=== PATIENT | male | born 1960 | race American Indian/Alaskan Native ===

== ENCOUNTER → 2019-04-12 08:00 | Outpatient (CLI) | payer MEDICARE, SELFPAY ==
--- NOTE | 2019-04-12 08:07 | RAD_ITS ---
CLINICAL HISTORY: Male, 58 years old. PROCEDURE: CONSENT: SEDATION: FLUOROSCOPY TIME (if supplied): (2:43) minutes/seconds Findings: patient swallowed barium without difficulty. There is no evidence of obstruction, hiatal hernia or gastroesophageal reflux. The stomach was then filled to the normal contour without mucosal abnormalities. The duodenal bulb and sweep are unremarkable. The proximal small bowel is within normal limits. RAD/Upper GI Series Only IMPRESSION: Negative study Electronically Signed: Florecita Avalos, at 8:30 EDT Tel , Service support ,
== END ==
PROVIDERS: Family Provider Family Medicine; PCP Family Medicine; Referring Provider Family Medicine; Visit Provider Family Medicine
DX: R07.89 Other chest pain (principal); R06.02 Shortness of breath; I25.10 Atherosclerotic heart disease of native coronary artery without angina pectoris; I25.83 Coronary atherosclerosis due to lipid rich plaque; I50.32 Chronic diastolic (congestive) heart failure
CPT/HCPCS: 74246; 93225; 93226

== ENCOUNTER → 2019-04-27 12:55 | Outpatient (CLI) | payer MEDICARE, SELFPAY ==
--- NOTE | 2019-04-27 12:58 | ECHOD_ITS ---
Reason For Study: Atypical chest pain Procedure This was a 2D Doppler, Color Flow transthoracic echocardiogram. The study was technically difficult. Contrast injection was performed. Exam performed in department. Left Ventricle Normal LV size. Moderate segmental systolic dysfunction (see wall motion). The estimated ejection fraction is 30 %. Transmitral doppler flow suggestive of impaired relaxation of left ventricle. Infero-Basal: Hypokinetic. Basal inferoseptal: Akinetic. Mid-Anterior : Severely Hypokinetic. Mid- Lateral : Hypokinetic. Mid-Inferior: Akinetic. Mid-inferoseptal : Akinetic. Mid-anteroseptal : Akinetic. Anterior [place] : Hypokinetic. Inferior [place] : Dyskinetic. Lateral [place] : Akinetic. Septal [place] : Hypokinetic. Right Ventricle Normal RV size. Normal systolic function. Atria The left atrium is mildly enlarged. Normal right atrium. No doppler evidence for ASD. Mitral Valve There is no mitral annular calcification. Normal mitral valve. Trivial mitral valve insufficiency. Tricuspid Valve Normal tricuspid valve. Trivial tricuspid valve insufficiency. Right ventricular systolic pressure estimated to be 35 mmHg. Aortic Valve Trisinus/trileaflet aortic valve. Normal aortic valve. Pulmonic Valve The pulmonic valve is not well visualized. Great Vessels Normal sized aortic root. Pericardium/Pleural No pericardial effusion. Medication 22 gauge I.V. with prn adaptor inserted into right arm. Diluted definity 4ml given slow IV push to enhance endocardial definition. MMode/2D Measurements & Calculations LVIDd: 5.5 cm IVSd: 1.1 cm Ao root diam: 3.8 cm LVIDs: 4.3 cm LVPWd: 1.0 cm RVDd: 3.8 cm FS: 22.7 % LAV(MOD-bp): 100.5 ml LA A4 area: 27.4 cm2 LA dimension(2D): 3.9 cm LAV(MOD-bp) Indexed: 39.0 ml/m2 LAV(MOD-sp2): 106.2 ml LAV(MOD-sp4): 82.4 ml RA A4 area: 22.4 cm2 Doppler Measurements & Calculations MV E max solitario: 63.5 cm/sec Lat Peak E' Solitario: 8.9 cm/sec Med Peak E' Solitario: 5.9 cm/sec MV A max solitario: 102.6 cm/sec E/E' lat: 7.2 E/E' med: 10.7 MV E/A: 0.62 Ao V2 max: 146.3 cm/sec LV V1 max: 93.6 cm/sec PA V2 max: 108.6 cm/sec Ao max P.6 mmHg LV V1 max P.5 mmHg TR max solitario: 281.0 cm/sec TR max P.6 mmHg Interpretation Summary The study was technically difficult. Contrast injection was performed. Moderate segmental systolic dysfunction (see wall motion). The estimated ejection fraction is 30 %. The left atrium is mildly enlarged. Trivial mitral valve insufficiency. Trivial tricuspid valve insufficiency. Right ventricular systolic pressure estimated to be 35 mmHg. Transmitral doppler flow suggestive of impaired relaxation of left ventricle Ordering Physician: Jae Berumen Referring Physician: Jae Berumen Performed By: Ana Iqbal RDCS
== END ==
PROVIDERS: Family Provider Family Medicine; PCP Family Medicine; Referring Provider Family Medicine; Visit Provider Family Medicine
DX: I25.83 Coronary atherosclerosis due to lipid rich plaque (principal); I50.32 Chronic diastolic (congestive) heart failure; R07.89 Other chest pain; R06.02 Shortness of breath
CPT/HCPCS: 93306; Q9957; A4216; C8929

== ENCOUNTER 2020-02-24 07:40 | Day surgery (SDC) | payer MEDICARE, SELFPAY ==
[2019-11-18 11:00] VITALS: BMI 48.8
--- NOTE | 2019-12-20 11:11 | HP_ITS ---
HPI HPI History of Present Illness Surgical H&P: Yes Details: This is a 59-year-old gentleman that is here for an updated H&P for an upcoming prophylactic ICD placement later on this month with Dr. Herrera. He has a history of coronary artery disease with stenting to his LAD and circumflex in 2010, cardiomyopathy with an ejection fraction of 30%, frequent PVCs. He does not have any chest pain. He does get SOB with exertion. He feels that he is SOB walking up a flight of steps. This is not new. He does not feel that this is worse than before. He does not have any orthopnea. He does use O2 at night. He does not note any palpitations. He does not have any near syncope/syncope. He does have positional dizziness. He does have edema. Intake Vital Signs 12/20/19 Height 6 ft 12/20/19 Weight: 358 lb 12/20/19 BMI 48.5 12/20/19 BP 130/58 H 12/20/19 Blood Pressure Location Lt brachial 12/20/19 Position Sitting 12/20/19 Respiration 18 12/20/19 Pulse 88 12/20/19 Pulse Source Monitor 12/20/19 Pulse Oximetry (%) 98 Intake Visit Reasons: UPDATE H&P FOR MAYI CHEN 11:00 Communications Maintainer Required: No Accompanied by: None Is patient in pain?: No Allergies atorvastatin [From Lipitor] Adverse Reaction (Intermediate, Verified 12/20/19 10:24) Myalgias pravastatin [From Pravachol] Adverse Reaction (Intermediate, Verified 12/20/19 10:24) Myalgias Medications Aspirin 325 mg PO DAILY@0800 05/23/16 [History Confirmed 12/20/19] Carvedilol [Coreg] 12.5 mg PO BID 05/23/16 [History Confirmed 12/20/19] Clopidogrel Bisulfate [Plavix] 75 mg PO DAILY 05/23/16 [History Confirmed 12/20/19] albuterol sulfate 2.5 mg/0.5 mL solution for nebulization 2.5 mg INHALATION Q6H PRN 05/14/19 [History Confirmed 12/20/19] albuterol sulfate 90 mcg/actuation breath activated powder inhaler 1 inh INHALATION Q4H PRN 05/14/19 [History Confirmed 12/20/19] amlodipine 5 mg tablet 5 mg PO DAILY 05/14/19 [History Confirmed 12/20/19] gabapentin 300 mg capsule 300 mg PO BID cap 05/14/19 [History Confirmed 12/20/19] losartan 100 mg tablet 100 mg PO DAILY 05/14/19 [History Confirmed 12/20/19] lovastatin 40 mg tablet 40 mg PO QPM 05/14/19 [History Confirmed 12/20/19] metformin 500 mg tablet 500 mg PO BID 05/14/19 [History Confirmed 12/20/19] nitroglycerin 0.4 mg sublingual tablet 0.4 mg SUBLINGUAL Q5-15M 05/14/19 [History Confirmed 12/20/19] tramadol 50 mg tablet 50 mg PO Q12H 05/14/19 [History Confirmed 12/20/19] trazodone 50 mg tablet 50 mg PO QHS 05/14/19 [History Confirmed 12/20/19] [facility] Medical History Ischemic cardiomyopathy with implantable cardioverter-defibrillator (ICD) (Chronic) Nocturnal oxygen desaturation (Chronic) Atherosclerotic heart disease of [place] coronary artery without angina pectoris (Chronic) Diminished pulses in lower extremity (Chronic) Neuropathy of both feet (Chronic) History of tobacco use (Chronic) KRISHAN (obstructive sleep apnea) (Chronic) COPD (chronic obstructive pulmonary disease) (Chronic) Aortic ectasia, abdominal (Chronic) CHF (congestive heart failure), NYHA class III (Chronic) Hyperlipidemia (Chronic) Essential hypertension (Chronic) Diabetes mellitus, type II (Chronic) Atrial tachycardia, paroxysmal (Acute) PAC (premature atrial contraction) (Acute) PVC's (premature ventricular contractions) (Acute) Cardiomyopathy (Acute) Edema of right lower extremity (Acute) Obesity (BMI 35.0-39.9 without comorbidity) (Chronic) Open wound of right lower extremity with complication (Resolved) Surgical History Stented coronary artery (Chronic 12/12/10) History of left heart catheterization (Chronic 03/25/19) Family History Father , Age 41 of CHF Cardiomyopathy Congestive heart failure Sister , age 38 of heart failure Congestive heart failure Social History (Updated 12/20/19 @ 11:11 by CATALINA Rosenthal) Smoking Status: Former smoker ROS Const Const: Negative for fatigue, weakness, fever(s) or headache(s) Eyes Eyes: Negative for blind spots, loss of peripheral vision or transient loss of vision ENT ENT: Positive for dizziness; negative for headache(s), tinnitus or Nosebleed/epistaxis Cardio Chest Pain: No Palpitations: No Edema: None Muscle aches with walking: None Resp Respiratory: Positive for SOB with activity; negative for SOB at rest, SOB orthopnea\SOB lying down or Cough Additional Details: wears O2 at night GI GI: Negative nausea, vomiting, heartburn or vomiting blood/hematemesis : Negative for hematuria Musc Musc: Positive for muscle aches/ myalgia, muscle weakness and joint pain Neuro Neuro: Positive for dizziness; negative for lightheadedness, near syncope, syncope, orthostatic symptoms, headache(s) or weakness Basilio Hematologic/Lymphatic: Negative for easy bleeding Endo Endo: Negative for fatigue Cardiology Exam Const Appearance: cooperative, no acute distress and well developed Nutritional Appearance: obese Orientation: alert, awake and oriented x3 Head Head: normocephalic and atraumatic Mouth: moist mucous membranes Eyes General: appearance normal, both eyes and all related structures Conjunctivae: conjunctivae normal Pupils: PERRL EOM: EOM intact bilaterally Neck Neck: normal visual inspection, no lymphadenopathy and no JVD Carotids: Negative bruit Neck Mass: Negative Neck mass Chest Chest inspection: normal inspection of the chest and symmetric chest movement Auscultation: Bilateral: Clear to Auscultation Cardio Palpation: normal PMI Rate: regular rate Rhythm: regular rhythm Heart sounds: S1 normal and S2 normal; negative rub, gallop or murmur GI GI: normal to inspection, soft, no hepatosplenomegaly, bowel sounds present and obese; negative tender Neuro General: alert, awake, oriented x3, CN's II-XI intact bilaterally and moves all extremities Extremities Pulses: Normal: Right Posterior Tibial Pulse, Left Posterior Tibial Pulse, Right Radial Pulse, Left Radial Pulse Lower Extremity Edema: None: Bilateral Psych Psychological: normal affect Assessment & Plan 1. Atherosclerosis of [place] coronary artery of [place] heart without angina pectoris I25.10 Totally occluded LAD, 95-99 mid RCA occlusion, 70-80% lcx stenosis per [facility] 11/25/[address] Luis Carlos Bernabe, [facility].3.0 X 23 Promus stent to left CX per Dr. Bernabe @ [facility] 12/12/2010. Nonobstructive CAD, previously placed stents in LAD are patent per Dr. Maverick Chu [facility] main [place] 03/25/2019 Plan Stable, from a cardiac standpoint patient does not have any symptoms of angina. We recommend that they continue with current aggressive medical management and risk factor modification. 2. Essential hypertension I10 Plan Blood pressure is well controlled on current medications, we do not recommend any changes at this time. 3. PVC's (premature ventricular contractions) I49.3 Plan Pt will continue with current dose of BB> Orders Orders: 12 Lead EKG performed by [facility] Today 4. Mixed hyperlipidemia E78.2 Plan Managed by PCP. Will continue with current moderate intensity statin. 5. Cardiomyopathy, ischemic I25.5 Plan Patient is scheduled to undergo a prophylactic ICD placement with Dr. Herrera. He did have labs done at [facility] earlier this morning. He is aware that if there is something else that needs to be obtained that was not obtained that we will let him know. A SDM interaction occurred at this visit using an SDM tool prior to initial implant of ICD. Plan Detail Follow Up 12/20/19 (Please make sure pt is on Dr. Mondragon to get labs that were done at [facility]) 12/20/19 (keep as is) Coding Level of Care Code Off vis,est,level 4 Diagnoses Atherosclerosis of [place] coronary artery of [place] heart without angina pectoris I25.10 ??[place] vs. transplanted heart: [place] heart Essential hypertension I10 PVC's (premature ventricular contractions) I49.3 Mixed hyperlipidemia E78.2 ??Hyperlipidemia type: mixed hyperlipidemia Cardiomyopathy, ischemic I25.5 Coding Level of Care Code Off vis,est,level 4 Diagnoses Atherosclerosis of [place] coronary artery of [place] heart without angina pectoris I25.10 ??[place] vs. transplanted heart: [place] heart Essential hypertension I10 PVC's (premature ventricular contractions) I49.3 Mixed hyperlipidemia E78.2 ??Hyperlipidemia type: mixed hyperlipidemia Cardiomyopathy, ischemic I25.5 Supplemental Info Supplemental Information Echocardiogram in April 2019 demonstrated:Moderate segmental systolic dysfunction (see wall motion). The estimated ejection fraction is 30 %. The left atrium is mildly enlarged. Trivial mitral valve insufficiency. Trivial tricuspid valve insufficiency. Right ventricular systolic pressure estimated to be 35 mmHg. Transmitral doppler flow suggestive of impaired relaxation of left ventricle Diagnostics Electrocardiogram 12/20/19 Echocardiogram 04/27/19 12/20/19 1111 <Electronically signed by Brianna Casanova> Date _ Brianna ARNOLD
[2020-02-21 15:46] LABS: White Blood Cells 0 SEEN /hpf (0-5)
[2020-02-21 16:21] LABS: Hematocrit 44.7 % (40-54); Hemoglobin 13.9 g/dL (13.0-16.5); Mean Corp Hgb Conc 31.1 g/dL (32-36); Mean Corpuscular Hgb 28.2 pg (27.0-32.0); Mean Corpuscular Volume 90.7 fL (80-94); Mean Platelet Vol. 10.2 fl (6.2-12.0); Platelet Count 203 K/mm3 (150-450); RBC Distribution Width CV 13.1 % (11.6-14.6); RBC Distribution Width SD 43.8 fl (35.1-43.9); Red Blood Count 4.93 M/mm3 (4.6-6.2)
[2020-02-21 16:22] LABS: Color, Urine Yellow (Yellow); Glucose, Dipstick Normal (Normal); Ketone-Dipstick Negative (Negative); Leukocyte Esterase-Dipstick Negative /ul (Negative); Nitrite-Dipstick Negative (Negative); Occult Blood-Urine 10 /ul (Negative); Protein-Dipstick Negative (Negative); Urine Bilirubin Dipstick Negative (Negative); Urine Clarity Clear (Clear); Urine Urobilinogen Normal (Normal)
[2020-02-21 16:27] LABS: Bacteria 0 SEEN /hpf (None Seen); Mucous, Urine 0 SEEN /hpf (<or=2+); Squamous Epithelial Cells - UA 0 SEEN /hpf (0-5)
[2020-02-21 16:28] LABS: Red Blood Cells-Urine 0-5 SEEN /hpf (0-5)
[2020-02-21 16:29] LABS: Prothrombin Time (Protime)PT. 12.2 SECONDS (11.7-14.9)
[2020-02-21 16:45] LABS: AST(SGOT) 18 U/L (15-37); Alanine Aminotransfer ALT/SGPT 27 U/L (16-61); Albumin, Serum 3.7 g/dL (3.2-5.0); Alkaline Phosphatase 111 U/L (45-117); Anion Gap 3 (5-15); BUN 13 mg/dL (7-18); BUN/Creat Ratio 19.5 RATIO (10-20); Calcium,Total 9.1 mg/dL (8.5-10.1); Chloride 101 mmol/L (98-107); Cholesterol 179 mg/dL (200); Creatinine, Serum 0.67 mg/dL (0.70-1.30); EST Glomerular Filtration Rate 129 mL/min (>60); Est Glom Filt Rate - Afr Amer 156 mL/min (>60); Globulin 4.4 g/dL (2.2-4.2); Glucose 92 mg/dL (74-106); High Density Lipoprotein 47 mg/dL; Protein, Total 8.1 g/dL (6.4-8.2); Sodium Level 137 mmol/L (136-145); Triglycerides 161 mg/dL; Very Low Density Lipoprotein 32 mg/dL (5-40)
--- NOTE | 2020-02-23 09:10 | HP.PCM_ITS ---
History and Physical Date of Admission: 02/24/20 Mr. 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 Patient was then seen by Dr. Sherman. He underwent a recent Lexiscan/MPI which demonstrated a fixed 21% of the anterior wall consistent with scar, and a fixed reduction in observed activity of the inferior wall on 03/17/2019. This precipitated left heart catheterization performed at [facility] on 03/25/2019 with the following results: Left main was normal, LAD had moderate diffuse disease, left circumflex had mild diffuse disease, and RCA had moderate diffuse disease. No additional stenting was performed. Patent stents of the LAD were noted. Patient underwent a 48-hour Holter monitor on 04/12/2019 which demonstrated PACs, frequent isolated PVCs one ventricular triplet, 44 ventricular couplets, rare ventricular bigeminy. His echocardiogram at [facility] on 04/27/2019 showed an EF around 30%, mild left atrial enlargement, RVSP of 35 mmHg. Patient was scheduled to undergo AICD placement in December 2019, however this was postponed due to the COVID-19 pandemic. He has been rescheduled to undergo defibrillator implantation on 02/24/2020. EKG dated 03/17/2019 shows normal sinus rhythm with frequent PVCs and old anteroseptal wall myocardial infarction. He denies chest, arm, jaw, or neck discomfort. His exercise tolerance is stable. He denies symptoms of CHF, palpitations, lightheadedness, dizziness, near syncope, or syncopal episodes. He denies edema or claudication issues. He denies orthopnea, PND, fever, chills, blood in urine, blood in stool, myalgia, or unexplainable fatigue. Intake Vital Signs: See EMR Intake Visit Reasons: Defibrillator implant Cloth Coverer Required: No Is patient in pain?: No Allergies atorvastatin [From Lipitor] Adverse Reaction (Intermediate, Verified 12/20/19 10:24) Myalgias pravastatin [From Pravachol] Adverse Reaction (Intermediate, Verified 12/20/19 10:24) Myalgias Medications See EMR [facility] Medical History Ischemic cardiomyopathy with implantable cardioverter-defibrillator (ICD) (Chronic) Nocturnal oxygen desaturation (Chronic) Atherosclerotic heart disease of [place] coronary artery without angina pectoris (Chronic) Diminished pulses in lower extremity (Chronic) Neuropathy of both feet (Chronic) History of tobacco use (Chronic) KRISHAN (obstructive sleep apnea) (Chronic) COPD (chronic obstructive pulmonary disease) (Chronic) Aortic ectasia, abdominal (Chronic) CHF (congestive heart failure), NYHA class III (Chronic) Hyperlipidemia (Chronic) Essential hypertension (Chronic) Diabetes mellitus, type II (Chronic) Atrial tachycardia, paroxysmal (Acute) PAC (premature atrial contraction) (Acute) PVC's (premature ventricular contractions) (Acute) Cardiomyopathy (Acute) Edema of right lower extremity (Acute) Obesity (BMI 35.0-39.9 without comorbidity) (Chronic) Open wound of right lower extremity with complication (Resolved) Surgical History Stented coronary artery (Chronic 12/12/10) History of left heart catheterization (Chronic 03/25/19) Family History Father , Age 41 of CHF Cardiomyopathy Congestive heart failure Sister , age 38 of heart failure Congestive heart failure Social History (Updated 02/21/20 @ 15:[address] Rosendo Hassan MD) Smoking Status: Former smoker ROS Const Const: Negative for fatigue, weakness, body ache, fever(s), headache(s), chills, frequent falls, night sweats, daytime sleepiness, difficulty sleeping, excessive sweating, weight gain, weight loss, increased appetite, poor appetite, anorexia or other (Updated H&P for gen change) Eyes Eyes: Negative for blind spots, loss of peripheral vision, transient loss of vision, blurry vision, change in vision, double vision, floaters, tunnel vision or other ENT ENT: Negative for headache(s), dizziness, hearing loss, tinnitus, Nosebleed/epistaxis, balance problems, post nasal drip, lip swelling, tongue swelling, bleeding gums, hoarseness, neck pain, dry mouth or other Cardio Chest Pain: No Resp Respiratory: Negative for SOB with activity, SOB at rest, SOB orthopnea\SOB lying down, Coughing up blood/hemoptysis, chest congestion, pain on inspiration, snoring, stridor, wheezing, crackles, paroxysmal nocturnal dyspnea or other GI GI: Negative nausea, vomiting, heartburn, constipation, belching, bloating, cramping, vomiting blood/hematemesis, bright, red blood in stools, black,tarry stools, loose stools, Difficulty Swallowing or other : Negative for hematuria, frequent nighttime urination/ nocturia, erectile dysfunction or abnormal vaginal bleeding Musc Musc: Negative for muscle aches/ myalgia, muscle weakness, joint pain or balance problems Skin Skin: Negative redness, non-healing lesions, rash, unusual bruising, skin ulcer, wounds, jaundice or other Neuro Neuro: Negative for dizziness, lightheadedness, near syncope, syncope, orthostatic symptoms, frequent falls, headache(s), weakness, confusion, memory loss, restless legs, blurry vision, double vision, vertigo, seizures, lack of coordination or other Basilio Hematologic/Lymphatic: Negative for easy bleeding, easy bruising, enlarged lymph nodes or other Endo Endo: Negative for fatigue, cold intolerance, heat intolerance, excessive sweating, flushing, increased thirst/drinking, increased hunger, hair loss, hair growth or other Psych Psych: Negative for anxiety, depression, thoughts of harming anyone, thoughts of harming yourself, visual hallucinations, panic attacks or audible hallucinations Allergy Allergy/Immunology: Negative for throat swelling, Negative for tongue swelling, Negative for hives, Negative for rash, Negative for lip swelling Cardiology Exam Const Appearance: cooperative, healthy appearing and no acute distress Nutritional Appearance: well nourished Orientation: alert, oriented x3 and oriented to person Head Head: normal to inspection, normocephalic and atraumatic Nose: external nose normal Face and Sinus: face symmetric Mouth: oral mucosae normal Eyes General: appearance normal, both eyes and all related structures Eyelids: eyelids normal Conjunctivae: conjunctivae normal Pupils: PERRL and normal by confrontation EOM: EOM intact bilaterally Neck Neck: normal visual inspection and full ROM Carotids: normal carotid upstroke Chest Chest inspection: normal inspection of the chest Auscultation: Bilateral: Clear to Auscultation Cardio Palpation: normal PMI Rate: regular rate Rhythm: regular rhythm Heart sounds: S1 normal and S2 normal GI GI: normal to inspection, no hepatosplenomegaly and bowel sounds present Neuro General: alert, awake, oriented x3, CN's II-XI intact bilaterally and moves all extremities Skin Skin: no rashes or lesions noted Extremities Pulses: Normal: Right Femoral Pulse, Left Femoral Pulse, Right Dorsalis Pedis Pulse, Left Dorsalis Pedis Pulse, Right Posterior Tibial Pulse, Left Posterior Tibial Pulse, Right Radial Pulse, Left Radial Pulse Lower Extremity Edema: None: Bilateral Psych Psychological: normal affect Assessment & Plan 1. Atherosclerosis of [place] coronary artery of [place] heart without angina pectoris I25.10 Totally occluded LAD, 95-99 mid RCA occlusion, 70-80% lcx stenosis per [facility] 11/25/[address] Luis Carlos Bernabe, [facility].3.0 X 23 Promus stent to left CX per Dr. Bernabe @ [facility] 12/12/2010. Nonobstructive CAD, previously placed stents in LAD are patent per Dr. aMverick Chu [facility] 03/25/2019 Plan 1. Coronary artery disease: No exertional anginal symptoms at this time. No indication for any additional testing. Recommend he continue his aspirin, amlodipine, Coreg, Plavix and losartan. 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 2. CHF (congestive heart failure), NYHA class III I50.9 Plan 2. Congestive heart failure: The patient has significant ischemic cardiomyopathy and is undergoing AICD placement for primary prophylaxis of sudden cardiac . He does have lower extremity edema and he apparently has benefited from diuretic therapy in the past. He has however expressed significant concern regarding urinary frequency. I have advised him to get in contact with his urologist to assist with possible BPH therapy. In the meantime we will start him on Lasix 20 mg p.o. daily. 3. Mixed hyperlipidemia E78.2 Plan 3. Hyperlipidemia: We are awaiting a repeat lipid profile. His LDL should be less than 70. Unfortunately he is intolerant to statins. Continue therapeutic lifestyle changes. Patient declines antilipid therapy previously. This note was generated using a voice recognition system and there may be incorrect words, spelling or punctuation that were not noted when reviewing the office note prior to saving. A SDM interaction occurred at this visit using an SDM tool prior to initial implant of ICD.
[2020-02-23 12:06] VITALS: BMI 49.5
[2020-02-24] VITALS (13 sets, daily range): BP systolic 113–144; BP diastolic 58–76; PULSE 80–97; RESP 14–20; TEMP 36.6–36.7; O2SAT 93–95
--- NOTE | 2020-02-24 10:38 | PCM.OPRPT ---
Report of Operation Date of Procedure: 02/24/20 Description of Procedure: Diagnosis: Ischemic Cardiomyopathy with NYHA Class III Left ventricular ejection fraction 30% despite optimal medical therapy. ICD for primarty prevention Preoperative diagnosis implantation of [ ] Postoperative diagnosis same as above After informed consent and IV antibiotics the patient was brought to the [facility] catheterization laboratory. The [ ] side of the chest was prepped and draped in the usual sterile manner. The patient was sedated with intermittent boluses of IV Versed fentanyl and propofol as well as subcutaneous 1% lidocaine. An incision was made inferior to the clavicle to accommodate the size of the hardware device. The pocket was created using blunt and Bovie dissection. Hemostasis was obtained. Using the Seldinger technique the axillary vein was cannulated once and a guidewire was advanced under fluoroscopic guidance. Over the guidewire a sheath was advanced. Through this sheath, the electrode was positioned under fluoroscopic guidance into the right ventricle and was actively fixated. Once actively fixated, the lead was tested to check for proper sensing, capture threshold, impedance and to exclude diaphragmatic stimulation. Once the lead was implanted and all electrical parameters were confirmed to be functioning normally with appropriate values, the leads was then sutured to the pectoralis muscle with 2-0 silk on the Silastic collar ?2. The sponge and needle count were correct. Hemostasis was obtained. Antibiotic solution was used to flush the pocket. The new device was brought to the field. The lead was placed in the appropriate position of the header of the device and were secured by the setscrews and confirmed by the tug test. The device and the leads were then placed in the pocket. Pocket was closed with a deep layer of running 2-0 Vicryl, superficial layer of running 4-0 Vicryl and skin with Steri-Strips that were covered with a rolled 4 x 4's and Tegaderm. The patient left the lab with the device programmed to chronic parameters. There were no complications. Implanted system is a single chamber [employer] ICD Lead and device serial and model numbers are available in the chart documents provided by the device company international representative procedure summary.
[2020-02-24] MEDS: Acetaminophen 325 MG Tablet PO (12:19)
--- NOTE | 2020-02-24 12:55 | RAD_ITS ---
STUDY: X-RAY CHEST REASON FOR EXAM: Male, 59 years old. Post PERMANENT ICD placement TECHNIQUE: Single AP portable view of the chest. COMPARISON: None. FINDINGS: EKG electrodes are seen. The lungs are clear and expanded. No evidence of pneumothorax. There is no demonstrated pleural abnormality. There is mild cardiac enlargement. A left-sided ICD device has been placed. Normal mediastinum and marcial. Normal visualized pulmonary arteries. There is atherosclerotic calcification of the aortic arch with tortuosity. There are diffuse degenerative changes of the visualized thoracic spine. Normal visualized ribs, clavicles, and shoulders. There is no demonstrated abnormality of the visualized soft tissue structures of the upper abdomen. RAD/Chest 1 View (Portable) IMPRESSION: Status post left ICD placement. It is in good position. No evidence of pneumothorax. Electronically Signed: Jelain Pretty, at 13:13 EDT , Service support ,
[2020-02-24] MEDS: Gabapentin 300 MG Capsule PO ×2 (15:18→21:52)
[2020-02-24] MEDS: HYDROcodone Bitartrate/Apap 5/325 Tablet PO (15:18)
[2020-02-24] MEDS: metFORMIN (XR) 500 MG Tablet PO (17:27)
[2020-02-24] MEDS: traZODone 50 MG Tablet PO (21:52)
[2020-02-24] MEDS: Carvedilol 12.5 MG Tablet PO (21:52)
[2020-02-24] MEDS: traMADol 50 MG Tablet PO (21:57)
[2020-02-24] MEDS: Heparin Injection (Vial) 5,000 UNIT/ML VIAL 5000 UNIT SC (21:58)
[2020-02-25 02:43] VITALS: PULSE 90
--- NOTE | 2020-02-25 02:51 | RAD_ITS ---
STUDY: X-RAY CHEST REASON FOR EXAM: Male, 59 years old. Post permanent ICD/Pacemaker, expiration view TECHNIQUE: Single AP portable view of the chest. COMPARISON: Chest x-ray February 25, 2020, February 24, 2020 5:38 AM FINDINGS: The study is described as expiration. There is a visualized left-sided pacemaker defibrillator. The interstitial markings are mildly prominent there is mild vascular prominence. There is no visualized pneumothorax. There is left lower lobe atelectasis. There is no demonstrated pleural abnormality. There is mild to moderate cardiac enlargement. Normal mediastinum and marcial. Normal visualized pulmonary arteries. There is atherosclerotic calcification of the aortic arch with tortuosity. There are diffuse degenerative changes of the visualized thoracic spine. Normal visualized ribs, clavicles, and shoulders. There is no demonstrated abnormality of the visualized soft tissue structures of the upper abdomen. RAD/Chest 1 View IMPRESSION: No visualized pneumothorax. Interstitial prominence consider minimal vascular congestion left lower lobe atelectasis cannot entirely exclude atypical infiltrates. Pacemaker defibrillator. Electronically Signed: Michelle Valiente MD at 5:53 EDT Tel , Service support ,
[2020-02-25 02:52] VITALS: BP 142/72; PULSE 90; RESP 18; TEMP 36.7; O2SAT 94
[2020-02-25] MEDS: Acetaminophen 325 MG Tablet PO (03:06)
[2020-02-25] MEDS: 0.9% Saline Lock 10 ML Syringe IV (03:07)
[2020-02-25 03:25] VITALS: PULSE 90
--- NOTE | 2020-02-25 05:25 | RAD_ITS ---
STUDY: X-RAY CHEST REASON FOR EXAM: Male, 59 years old. post permanent ICD/Pacemaker TECHNIQUE: Single AP portable view of the chest. COMPARISON: February 25, 2020 chest x-ray, 02/24/2020 chest x-ray FINDINGS: There is a left-sided pacer defibrillator. There is a a pattern of linear density increase interstitial markings haziness of the lungs. There is no demonstrated pleural abnormality. There is mild cardiac enlargement. Normal mediastinum and marcial. Normal visualized pulmonary arteries. Normal visualized aortic arch and descending thoracic aorta. There are diffuse degenerative changes of the visualized thoracic spine. Normal visualized ribs, clavicles, and shoulders. There is no demonstrated abnormality of the visualized soft tissue structures of the upper abdomen. RAD/Chest PA and Lateral IMPRESSION: Hazy interstitial infiltrates. Consider mild edema cannot exclude atypical infiltrates. No visualized pneumothorax. Electronically Signed: Michelle Valiente MD at 5:49 EDT Tel , Service support ,
[2020-02-25] MEDS: HYDROcodone Bitartrate/Apap 5/325 Tablet PO (06:38)
[2020-02-25 07:14] VITALS: PULSE 96
[2020-02-25] MEDS: Aspirin 325 MG Tablet PO (08:36)
[2020-02-25] MEDS: Gabapentin 300 MG Capsule PO (08:37)
[2020-02-25] MEDS: Losartan Potassium 100 MG Tablet PO (08:37)
[2020-02-25] MEDS: amLODIPine 5 MG Tablet PO (08:37)
[2020-02-25] MEDS: Clopidogrel Bisulfate 75 MG Tablet PO (08:37)
[2020-02-25] MEDS: metFORMIN (XR) 500 MG Tablet PO (08:37)
[2020-02-25] MEDS: Carvedilol 12.5 MG Tablet PO (08:37)
--- NOTE | 2020-02-25 09:25 | DCINST_ITS ---
Discharge Activity: Return to Normal Activity - as you feel able. No excessive stretching. No lifting your arm over your head (keep elbow below shoulder level) until seen for your pacemaker check. Do not lift your elbow away from your side until you are seen for your first visit. Keep the arm sling on if it helps remind you not to lift your arm. Additional Activity Instructions:: May shower or bathe on []. Do not scrub the incision or soak in the tub. Just wash with soap and let the water run over the incision. Gently pat dry with towel. Call your doctor if your incision/area has: Continuous Slow Oozing, Sudden Increased Bleeding, Increased Pain/ Swelling, Increased Redness, Foul Smelling Discharge, Swelling at the incision site Call your doctor if you observe: Fever of 101 or Higher, Shortness of breath, Dizziness, Fainting spells, Swelling in the ankles, Chest pain, Prolonged hiccoughing, Increased palpitations (irregular heartbeat) Remove Dressing in (days):: 2 - per Sues instructions Additional Dressing/Incision Instructions:: When dressing is removed, wash and dry incision. Keep covered with a light bandage if it is rubbing against your clothing. Do not cover the incision with an airtight bandage. Change the bandage daily. Do not remove steri strips. The strips will fall off on their own. Additional Instructions: Signs and Symptoms to Report to Your Doctor at Once - call your doctor's office or Doctor's Registry ([phone]) Call 911 or go to the nearest Emergency Department if you feel you need urgent care. *Infection (fever, increased redness or swelling at the incision site, drainage from the incision increased pain at the pacemaker site) *Shortness of breath *Dizziness *Fainting spells *Swelling in the ankles *Chest pain *Prolonged hiccoughing *Increased palpitaitons (irregular heartbeat) Medications: Take your pain medication as directed. Refer to your discharge instruction sheet for a list of medications you are to take. Allergies/Adverse Reactions: Allergies atorvastatin [From Lipitor] Adverse Reaction (Intermediate, Verified 12/20/19 10:24) Myalgias pravastatin [From Pravachol] Adverse Reaction (Intermediate, Verified 12/20/19 10:24) Myalgias Medications to take at Discharge Aspirin 325 mg PO DAILY@0800 08/16 Carvedilol [Coreg] 12.5 mg PO BID 05/23/16 Clopidogrel Bisulfate [Plavix] 75 mg PO DAILY 05/23/16 albuterol sulfate 2.5 mg/0.5 mL solution for nebulization 2.5 mg INHALATION Q6H PRN 05/14/19 albuterol sulfate 90 mcg/actuation breath activated powder inhaler 1 inh INHALATION Q4H PRN 05/14/19 amlodipine 5 mg tablet 5 mg PO DAILY 05/14/19 gabapentin 300 mg capsule 300 mg PO BID cap 05/14/19 losartan 100 mg tablet 100 mg PO DAILY 05/14/19 lovastatin 40 mg tablet 40 mg PO QPM 05/14/19 metformin 500 mg tablet 500 mg PO BID 05/14/19 nitroglycerin 0.4 mg sublingual tablet 0.4 mg SUBLINGUAL Q5-15M 05/14/19 tramadol 50 mg tablet 50 mg PO QHS 05/14/19 trazodone 50 mg tablet 50 mg PO QHS 05/14/19 furosemide 20 mg tablet 20 mg PO DAILY #30 tab 02/21/20 Primary Care Physician: Jae Berumen MD [Primary Care Provider] - Test Results: Test results from this visit will be discussed in further detail at your follow- up appointment, if applicable. Proposed Discharge Date: 02/25/20
[2020-02-25 09:35] VITALS: BP 128/64; PULSE 99; RESP 14; TEMP 36.3; O2SAT 94
== END 2020-02-25 10:14 | disposition home or self-care (01) ==
LOC: CLSP 08:15 → PCU 02-28 09:16
PROVIDERS: Internal Medicine Cardiovascular Disease; PCP Family Medicine; Referring Provider Internal Medicine Cardiovascular Disease; Visit Provider Internal Medicine Cardiovascular Disease
DX: Z45.02 Encounter for adjustment and management of automatic implantable cardiac defibrillator (principal); I25.5 Ischemic cardiomyopathy; E66.9 Obesity, unspecified; I25.10 Atherosclerotic heart disease of native coronary artery without angina pectoris; J44.9 Chronic obstructive pulmonary disease, unspecified; G47.33 Obstructive sleep apnea (adult) (pediatric); I11.0 Hypertensive heart disease with heart failure; I50.9 Heart failure, unspecified; E11.40 Type 2 diabetes mellitus with diabetic neuropathy, unspecified; Z68.42 Body mass index [BMI] 45.0-49.9, adult; Z79.899 Other long term (current) drug therapy; Z79.02 Long term (current) use of antithrombotics/antiplatelets; Z79.82 Long term (current) use of aspirin; Z79.84 Long term (current) use of oral hypoglycemic drugs; Z87.891 Personal history of nicotine dependence; E78.2 Mixed hyperlipidemia
CPT/HCPCS: 33249; 36415; 71045; 71046; 80048; 80061; 80076; 81001; 85027; 85610; 93641; 99152; 99153; J7050; A4216; C1894

== ENCOUNTER → 2020-06-21 21:23 | Outpatient (CLI) | payer MEDICARE, SELFPAY ==
[2020-02-23 12:06] VITALS: BMI 49.5
== END ==
PROVIDERS: PCP Family Medicine
DX: G47.33 Obstructive sleep apnea (adult) (pediatric) (principal); G47.34 Idiopathic sleep related nonobstructive alveolar hypoventilation
CPT/HCPCS: 95810

== ENCOUNTER → 2020-07-07 20:28 | Outpatient (CLI) | payer MEDICARE, SELFPAY ==
[2020-06-28 11:15] VITALS: BMI 52.4
== END ==
PROVIDERS: PCP Family Medicine; Visit Provider Specialist
DX: G47.33 Obstructive sleep apnea (adult) (pediatric) (principal); G47.34 Idiopathic sleep related nonobstructive alveolar hypoventilation; E66.9 Obesity, unspecified; R53.83 Other fatigue; R06.02 Shortness of breath
CPT/HCPCS: 95811

== ENCOUNTER → 2020-07-13 12:45 | Outpatient (CLI) | payer MEDICARE, SELFPAY ==
[2020-06-28 11:15] VITALS: BMI 52.4
--- NOTE | 2020-07-13 12:46 | ECHOCS_ITS ---
Reason For Study: CHF Procedure This was a 2D Doppler, Color Flow transthoracic echocardiogram. The study was technically difficult. Exam performed in department. Left Ventricle Normal LV size. The estimated ejection fraction is 45-50 %. Stage 1 diastolic dysfunction. Julian : Hypokinetic. Right Ventricle Normal RV size. Normal systolic function. Atria Normal left atrium. Normal right atrium. No doppler evidence for ASD. Mitral Valve There is no mitral valve stenosis. No mitral valve insufficiency. Tricuspid Valve There is no tricuspid stenosis. Trivial tricuspid valve insufficiency. Unable to estimate RV systolic pressure due to insufficient tricuspid regurgitant envelope. Aortic Valve The aortic valve is not well visualized. There is no aortic stenosis. No aortic valve insufficiency. Pulmonic Valve There is no pulmonic valvular stenosis. No pulmonic valve insufficiency. Great Vessels Normal aortic root. Pericardium/Pleural No pericardial effusion. Medication 22 gauge I.V. with prn adaptor inserted into right arm. Diluted definity 3.5ml given slow IV push to enhance endocardial definition. MMode/2D Measurements & Calculations LVIDd: 4.6 cm IVSd: 1.2 cm Ao root diam: 3.7 cm LVIDs: 3.6 cm LVPWd: 1.2 cm FS: 22.8 % LAV(MOD-bp): 72.9 ml LA A4 area: 26.8 cm2 LA dimension(2D): 5.2 cm LAV(MOD-bp) Indexed: 26.6 ml/m2 LAV(MOD-sp2): 61.2 ml LAV(MOD-sp4): 78.9 ml RA A4 area: 18.7 cm2 Doppler Measurements & Calculations MV E max solitario: 71.5 cm/sec Lat Peak E' Solitario: 7.3 cm/sec Med Peak E' Solitario: 6.7 cm/sec MV A max solitario: 88.1 cm/sec E/E' lat: 9.8 E/E' med: 10.6 MV E/A: 0.81 Ao V2 max: 156.5 cm/sec LV V1 max: 88.2 cm/sec PA V2 max: 75.3 cm/sec Ao max P.8 mmHg LV V1 max P.1 mmHg Interpretation Summary The study was technically difficult. Contrast injection was performed. The estimated ejection fraction is 45-50 %. Stage 1 diastolic dysfunction. Julian : Hypokinetic. The study was technically difficult. Contrast injection was performed. Ordering Physician: Sandra Bryan Referring Physician: Jae Berumen Performed By: Ana Iqbal RDCS
== END ==
PROVIDERS: PCP Family Medicine; Referring Provider Specialist; Visit Provider Specialist
DX: I25.5 Ischemic cardiomyopathy (principal)
CPT/HCPCS: 93306; Q9957; A4216; C8929

== ENCOUNTER 2021-12-28 18:24 | Emergency (ER) | payer MEDICARE, SELFPAY ==
[2021-12-28 18:24] VITALS: BP 147/81; PULSE 88; RESP 18; TEMP 36.9; O2SAT 86; O2SAT 97; BMI 55.7
--- NOTE | 2021-12-28 20:16 | EX.ED.DYSGE1 ---
HPI <CATALINA Marshall - Last Filed: 12/28/21 22:11> History of Present Illness Chief Complaint: Abd Pain Narrative Narrative: 61-year-old male with PMH of HTN, HLD, DM2, COPD on chronic O2, diverticulitis presents with LLQ abdominal pain that started around noon today. Pain feels sharp and cramping and waxes and wanes. He has had decreased appetite and nausea but no vomiting. No fever or chills. He reports a normal daily bowel movement with no diarrhea or melena or hematochezia. He is urinating normally. No abdominal surgical history. He states he had a normal routine colonoscopy at an outside facility within the last 6 months. 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 Atrial tachycardia, paroxysmal Cardiomyopathy CHF (congestive heart failure), NYHA class III COPD (chronic obstructive pulmonary disease) Diabetes mellitus, type II Diminished pulses in lower extremity Edema of right lower extremity Essential hypertension History of tobacco use Hyperlipidemia Ischemic cardiomyopathy Neuropathy of both feet Nocturnal oxygen desaturation Nonsustained paroxysmal ventricular tachycardia Obesity (BMI 35.0-39.9 without comorbidity) Open wound of right lower extremity with complication KRISHAN (obstructive sleep apnea) PAC (premature atrial contraction) PVC's (premature ventricular contractions) Home Medications aspirin 325 mg PO DAILY@0800 05/23/16 [History Last Taken Unknown] carvedilol 12.5 mg PO BID 05/23/16 [History Last Taken 02/24/20] clopidogrel 75 mg PO DAILY 05/23/16 [History Last Taken Unknown] albuterol sulfate 2.5 mg/0.5 mL solution for nebulization 2.5 mg INHALATION Q6H PRN 05/14/19 [History Last Taken Unknown] albuterol sulfate 90 mcg/actuation breath activated powder inhaler 1 inh INHALATION Q4H PRN 05/14/19 [History Last Taken Unknown] amlodipine 5 mg tablet 5 mg PO DAILY 05/14/19 [History Last Taken 02/24/20] gabapentin 300 mg capsule 900 mg PO BID cap 05/14/19 [History Last Taken Unknown] lovastatin 40 mg tablet 40 mg PO QPM 05/14/19 [History Last Taken Unknown] nitroglycerin 0.4 mg sublingual tablet 0.4 mg SUBLINGUAL Q5-15M 05/14/19 [History Last Taken Unknown] tramadol 50 mg tablet 50 mg PO QHS 05/14/19 [History Last Taken Unknown] trazodone 50 mg tablet 50 mg PO QHS 05/14/19 [History Last Taken Unknown] metformin 500 mg tablet 1,000 mg PO BID tab 11/27/20 [History Last Taken Unknown] furosemide 20 mg tablet 60 mg PO .COMPLEX #360 tab 05/28/21 [Rx Last Taken Unknown] sacubitril 49 mg-valsartan 51 mg tablet 1 tab PO BID #180 tab 12/11/21 [Rx Last Taken Unknown] Allergy/AdvReac Type Severity Reaction Status Date / Time atorvastatin [From Lipitor] AdvReac Intermediate Myalgias Verified 12/28/21 20:05 pravastatin [From Pravachol] AdvReac Intermediate Myalgias Verified 12/28/21 20:05 Family History Father , Age 41 of CHF Cardiomyopathy Congestive heart failure Sister , age 38 of heart failure Congestive heart failure Surgical History History of left heart catheterization (03/25/19) Implantable cardioverter-defibrillator (ICD) in situ (~02/24/20) Stented coronary artery (12/12/10) Social History Smoking Status: Former smoker how long ago did patient quit smokin years ago alcohol intake: never substance use type: does not use caffeine: Yes Type: coffee Number of servings: 3 ROS <CATALINA Marshall - Last Filed: 12/28/21 22:11> ROS ED ROS Narrative Constitutional: Negative for fever, chills, malaise. Eyes: Negative for visual change. ENT: Negative for sore throat, rhinorrhea. CVS: Negative for palpitations, chest pain, syncope. Respiratory: Negative for shortness of breath, cough, orthopnea. GI: Positive for abdominal pain, nausea. Negative for vomiting, diarrhea, constipation, melena, hematochezia. : Negative for dysuria, hematuria or frequency. Neuro: Negative for headache, motor/sensory dysfunction. Skin: Negative for rash, abscess, or wound. Musc: Negative for joint pain, swelling, trauma. Heme: Negative for easy bruising, bleeding, lymphadenopathy. EXAM <CATALINA Marshall - Last Filed: 12/28/21 22:11> Physical Exam Narrative Exam Narrative: CONST: Patient sitting in no acute distress. EYES: Normal inspection. ENT: Normal inspection, moist mucous membranes. NECK: Normal inspection. RESP: No respiratory distress, CTAB. CVS: Regular rate and rhythm, no murmur, no gallop. ABD: Obese abdomen is soft and nontender although body habitus limits examination, no guarding or rebound, nondistended. Back: Normal inspection. SKIN: Color normal, no rash, warm, dry, intact. EXTREMITIES: Normal appearance, no pedal edema. NEURO: Oriented x4. PSYCH: Normal affect. Const Vital Signs: 12/28/21 18:24 12/28/21 20:48 Temperature 98.4 F Temperature Source Temporal Pulse Rate 88 84 Respiratory Rate 18 18 Blood Pressure 147/81 H 138/81 H Blood Pressure Mean 103 100 Pulse Ox 97 94 Oxygen Delivery Method Nasal Cannula Nasal Cannula Oxygen Flow Rate (L/min) 3.5 3 <Dr. Regan Pace DO - Last Filed: 12/28/21 22:13> Physical Exam Const Vital Signs: 12/28/21 18:24 12/28/21 20:48 Temperature 98.4 F Temperature Source Temporal Pulse Rate 88 84 Respiratory Rate 18 18 Blood Pressure 147/81 H 138/81 H Blood Pressure Mean 103 100 Pulse Ox 97 94 Oxygen Delivery Method Nasal Cannula Nasal Cannula Oxygen Flow Rate (L/min) 3.5 3 [facility] <CATALINA Marshall - Last Filed: 12/28/21 22:11> [facility] Narrative Medical decision making narrative: Patient presents with left lower quadrant abdominal pain. He appears well and nontoxic. Vital signs within normal limits. On exam he has moist mucous membranes. Heart regular. Lungs clear. Abdomen is soft and nontender but is limited by body habitus. No peritoneal signs. Normal bowel sounds x4. There is no CVA tenderness. Labs show slight leukocytosis at 12.1, otherwise the rest of the CBC and BMP are unremarkable. CT was obtained and is unremarkable. He has diverticulosis but no diverticulitis. Right now the etiology of his pain is unknown but he has no vomiting, fever, normal bowel movements. He is tolerating p.o. intake and stable for discharge home. He was counseled to return for new or worsening symptoms. Lab Data Labs: Laboratory Results - last 24 hr 12/28/21 12/28/21 20:16 20:16 WBC 12.1 H RBC 5.18 Hgb 15.1 Hct 47.3 MCV 91.3 MCH 29.2 MCHC 31.9 L RDW Std Deviation 42.9 RDW Coeff of Pete 12.7 Plt Count 210 MPV 10.1 Immature Gran % (Auto) 0.400 Neut % (Auto) 75.8 H Lymph % (Auto) 13.6 L [place] % (Auto) 6.4 Eos % (Auto) 3.4 Baso % (Auto) 0.4 Absolute Neuts (auto) 9.2 H Absolute Lymphs (auto) 1.64 Nucleated RBC % 0 Sodium 136 Potassium 4.1 Chloride 99 Carbon Dioxide 34.0 H Anion Gap 3 L BUN 14 Creatinine 0.77 Estim Creat Clear Calc 102.71 Est GFR (MDRD) Af Amer 132 Est GFR (MDRD) Non-Af 109 BUN/Creatinine Ratio 18.2 Glucose 97 Calcium 10.4 H Radiography Diagnostic Testing: Clinical Impression(s) from Imaging Studies Abdomen/Pelvis CT 12/28/21 21:02 IMPRESSION: Overall decrease quality of exam due to patient size and motion. Focal fluid densities associated with the right left kidney likely representing cyst however suboptimal assessment due to motion and increased joints. No suspicious findings. Colonic diverticulosis without diverticulitis.. Electronically Signed: Wilber Barrett DO at 21:56 EST , <Dr. Regan Pace DO - Last Filed: 12/28/21 22:13> [facility] Narrative Medical decision making narrative: Patient seen and evaluated with the physician chiropractic assistant. Agree with history, physical, work-up. Patient has a slight leukocytosis of 12.1. Hemoglobin hematocrit are stable. Renal function electrolytes are normal. Patient has tenderness in the abdomen mostly in the left upper area of his abdomen. Abdomen is nonperitoneal. CT of the abdomen pelvis is obtained which does not show diverticulitis which was the patient's concern. When I reported this to him he stated that he still wanted antibiotics. I stated to him that there is no need for antibiotics at this time. I recommended that he return if his symptoms worsened, and at this point the patient was angry about the time he spent waiting for his evaluation in the emergency room due to high volumes. Patient again was instructed to return if any new or worsening symptoms. Lab Data Labs: Laboratory Results - last 24 hr 12/28/21 12/28/21 20:16 20:16 WBC 12.1 H RBC 5.18 Hgb 15.1 Hct 47.3 MCV 91.3 MCH 29.2 MCHC 31.9 L RDW Std Deviation 42.9 RDW Coeff of Pete 12.7 Plt Count 210 MPV 10.1 Immature Gran % (Auto) 0.400 Neut % (Auto) 75.8 H Lymph % (Auto) 13.6 L [place] % (Auto) 6.4 Eos % (Auto) 3.4 Baso % (Auto) 0.4 Absolute Neuts (auto) 9.2 H Absolute Lymphs (auto) 1.64 Nucleated RBC % 0 Sodium 136 Potassium 4.1 Chloride 99 Carbon Dioxide 34.0 H Anion Gap 3 L BUN 14 Creatinine 0.77 Estim Creat Clear Calc 102.71 Est GFR (MDRD) Af Amer 132 Est GFR (MDRD) Non-Af 109 BUN/Creatinine Ratio 18.2 Glucose 97 Calcium 10.4 H Radiography Diagnostic Testing: Clinical Impression(s) from Imaging Studies Abdomen/Pelvis CT 12/28/21 21:02 IMPRESSION: Overall decrease quality of exam due to patient size and motion. Focal fluid densities associated with the right left kidney likely representing cyst however suboptimal assessment due to motion and increased joints. No suspicious findings. Colonic diverticulosis without diverticulitis.. Electronically Signed: Wilber Barrett DO at 21:56 EST , Discharge Plan Triage Chief Complaint: Abd Pain ED Provider: Regan Pace Dx/Rx/DC Orders Clinical Impression: Abdominal pain of unknown cause Instructions: Abdominal Pain Prescriptions: No Action lovastatin 40 mg tablet 40 mg PO QPM RF: 0 trazodone 50 mg tablet 50 mg PO QHS RF: 0 tramadol 50 mg tablet 50 mg PO QHS RF: 0 amlodipine 5 mg tablet 5 mg PO DAILY RF: 0 nitroglycerin 0.4 mg tablet, sublingual 0.4 mg SUBLINGUAL Q5-15M RF: 0 albuterol sulfate 90 mcg/actuation aerosol powdr breath activated 1 inh INHALATION Q4H PRN (Reason: Shortness Of Breath) RF: 0 albuterol sulfate concentrate 2.5 mg/0.5 mL solution for nebulization 2.5 mg/0.5 mL solution for nebulization 2.5 mg INHALATION Q6H PRN (Reason: Shortness Of Breath) RF: 0 metformin 500 mg tablet 1,000 mg PO BID RF: 0 furosemide 20 mg tablet 60 mg PO .COMPLEX Qty: 360 RF: 3 carvedilol 12.5 MG tablet 12.5 mg PO BID RF: 0 aspirin 325 MG tablet 325 mg PO DAILY@0800 RF: 0 clopidogrel 75 MG tablet 75 mg PO DAILY RF: 0 gabapentin 300 mg capsule 900 mg PO BID RF: 0 Entresto 49-51 mg tablet 1 tab PO BID Qty: 180 RF: 3 Primary Care Provider: Jae Berumen Referrals: Jae Berumen MD [Primary Care Provider] - Activity Restrictions/Additional Instructions: Your CAT scan showed no signs of diverticulitis. I did note you have some cysts on both kidneys but this would not cause the pain you are having today. I recommend taking [id number] pain medication as needed and following up with your primary care doctor. If symptoms worsen return to the ER. Disposition Disposition: Home, Self Care
[2021-12-28 20:24] LABS: Absolute Lymphocyte Count 1.64 X10^3/uL (0.83-4.51); Absolute Neutrophil Count 9.2 X10^3/uL (2.0-7.7); Basophil# 0.05 X10^3/uL; Basophil% 0.4 % (0-1); Eosinophil# 0.41 X10^3/uL; Eosinophils% 3.4 % (0-5); Hematocrit 47.3 % (40-54); Hemoglobin 15.1 g/dL (13.0-16.5); Lymphocyte # 1.64 X10^3/ul (0.83-4.51); Lymphocyte % 13.6 % (19-41); Mean Corp Hgb Conc 31.9 g/dL (32-36); Mean Corpuscular Hgb 29.2 pg (27.0-32.0); Mean Corpuscular Volume 91.3 fL (80-94); Mean Platelet Vol. 10.1 fl (6.2-12.0); Monocyte# 0.78 X10^3/uL; Monocyte% 6.4 % (0-10); NRBC Flagged by Analyzer 0 % (0-5); Neutrophil # 9.17 X10^3/uL (2.7-7.7); Neutrophil % 75.8 % (47-70); Platelet Count 210 K/mm3 (150-450); RBC Distribution Width CV 12.7 % (11.6-14.6); RBC Distribution Width SD 42.9 fl (35.1-43.9); Red Blood Count 5.18 M/mm3 (4.6-6.2); White Blood Count 12.1 K/mm3 (4.4-11.0)
[2021-12-28] MEDS: Morphine 4 MG/ML Syringe IV (20:41)
[2021-12-28] MEDS: Ondansetron 4 MG/2 ML Vial IV (20:41)
[2021-12-28 20:47] LABS: Anion Gap 3 (5-15); BUN 14 mg/dL (7-18); BUN/Creat Ratio 18.2 RATIO (10-20); Calcium,Total 10.4 mg/dL (8.5-10.1); Chloride 99 mmol/L (98-107); Creatinine, Serum 0.77 mg/dL (0.70-1.30); EST Glomerular Filtration Rate 109 mL/min (>60); Est Glom Filt Rate - Afr Amer 132 mL/min (>60); Estimated Creatinine Clearance 102.71 ml/min; Glucose 97 mg/dL (74-106); Potassium 4.1 mmol/L (3.5-5.1); Sodium Level 136 mmol/L (136-145)
[2021-12-28 20:48] VITALS: BP 138/81; PULSE 84; RESP 18; O2SAT 94
--- NOTE | 2021-12-28 21:02 | CT_ITS ---
INDICATION: llq abdominal pain EXAMINATION: CT ABDOMEN AND PELVIS WITH CONTRAST - CT Abdomen And Pelvis W/ Contrast Injection TECHNIQUE: Helically acquired images were obtained of the abdomen and pelvis following IV contrast. A radiation dose optimization technique was used for this scan. IV Contrast dosage and agent: 100 mL of ISOVUE-300. Oral contrast: None. COMPARISON: None. FINDINGS: There is motion artifact degrading quality the exam. There is also decreased x-ray penetration and increased noise degrading image quality. LOWER CHEST: Linear opacity extending from the posterior dependent pleural surface right lung base consistent with atelectasis. No cardiomegaly or pericardial effusion. Cardiac conduction wires seen around the heart. LIVER: Homogeneous. No focal mass. GALLBLADDER AND BILIARY TREE: No calcified gallstones. No gallbladder distension or wall edema. No intra- or extrahepatic biliary ductal dilation. PANCREAS: No focal cystic or solid mass. SPLEEN: Normal size without focal cystic or solid mass. ADRENAL GLANDS: No nodules. KIDNEYS, URETERS and BLADDER: Normal renal size and position. 2.6 cm exophytic fluid density superior pole of the left kidney. 1.9 cm fluid density mid right kidney. No hydronephrosis. Bladder is mostly collapsed. PERITONEUM: No ascites or free air. No other fluid collection. BOWEL: No evidence of acute appendicitis. No abnormally distended bowel loops or air fluid levels. No wall thickening or mass. No focal inflammatory changes. Scattered diverticuli are seen throughout the colon. LYMPH NODES: No enlarged mesenteric or retroperitoneal lymph nodes. VESSELS: Aorta is non-dilated. Scattered intimal calcifications: Aorta without aneurysmal dilation or stenosis. REPRODUCTIVE ORGANS: Within normal limits ABDOMINAL WALL: No discrete abdominal or pelvic wall hernia. BONES: No lytic or blastic abnormality. Age expected degenerative changes spine. CT/Abdomen/Pelvis W IV Cont ONLY IMPRESSION: Overall decrease quality of exam due to patient size and motion. Focal fluid densities associated with the right left kidney likely representing cyst however suboptimal assessment due to motion and increased joints. No suspicious findings. Colonic diverticulosis without diverticulitis.. Electronically Signed: Wilber Barrett DO at 21:56 EST ,
[2021-12-28 22:13] VITALS: PULSE 87; RESP 18; O2SAT 94
== END 2021-12-28 22:15 | disposition home or self-care (01) ==
PROVIDERS: Physician Assistant; Emergency Provider Student in an Organized Health Care Education/Training Program; PCP Family Medicine; Visit Provider Student in an Organized Health Care Education/Training Program
DX: R10.32 Left lower quadrant pain (principal); J44.9 Chronic obstructive pulmonary disease, unspecified; I11.0 Hypertensive heart disease with heart failure; I50.9 Heart failure, unspecified; E11.40 Type 2 diabetes mellitus with diabetic neuropathy, unspecified; G47.33 Obstructive sleep apnea (adult) (pediatric); I25.10 Atherosclerotic heart disease of native coronary artery without angina pectoris; E78.5 Hyperlipidemia, unspecified; I25.5 Ischemic cardiomyopathy; Z79.82 Long term (current) use of aspirin; Z79.84 Long term (current) use of oral hypoglycemic drugs; Z79.899 Other long term (current) drug therapy; Z95.5 Presence of coronary angioplasty implant and graft; Z87.891 Personal history of nicotine dependence
CPT/HCPCS: 74177; 80048; 85025; 96374; 96375; 99283; Q9967; A4216; J2405

== ENCOUNTER 2024-01-05 08:21 | Inpatient (IN) | payer MEDICARE, SELFPAY ==
[2024-01-05] VITALS (18 sets, daily range): BP systolic 102–139; BP diastolic 53–77; PULSE 85–102; RESP 12–28; TEMP 35.6–37.4; O2SAT 71–94; BMI 53.1
--- NOTE | 2024-01-05 08:39 | EKG12_ITS ---
Test Reason : SOB Blood Pressure : / mmHG Vent. Rate : 094 BPM Atrial Rate : 094 BPM P-R Int : 190 ms QRS Dur : 082 ms QT Int : 348 ms P-R-T Axes : 049 -23 054 degrees QTc Int : 435 ms Normal sinus rhythm Septal infarct , age undetermined Confirmed by ROXANNE MCGRAW, SYDNEY ([id number]), visual effects editor MARINO PAULA ([id number]) on 01/06/2024 7:57:29 AM Referred By: Confirmed By:SYDNEY OLIVEIRA MD
--- NOTE | 2024-01-05 08:40 | ED.VIS.DYS ---
HPI History of Present Illness Chief Complaint: Shortness of Breath Detail of Chief Complaint: Shortness of breath Informant: patient Narrative Narrative: Patient presents to the emergency department with complaint of shortness of breath. Patient states that he thinks he came down with something 3 days ago. Patient normally on 4 L O2 at home and per daughter he has been running in the 70% O2 sat range. Patient does have a cough and subjective fever. He has had some chills. Cough is nonproductive. He denies chest pain. Does complain of exertional dyspnea. Patient with history of COPD and history of CHF. He has an implantable cardioverter. Patient on aspirin and Plavix. 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 Atrial tachycardia, paroxysmal CHF (congestive heart failure), NYHA class III COPD (chronic obstructive pulmonary disease) Diabetes mellitus, type II Diminished pulses in lower extremity Essential hypertension HFrEF (heart failure with reduced ejection fraction) Hyperlipidemia Ischemic cardiomyopathy Morbid obesity Neuropathy of both feet Nocturnal oxygen desaturation Nonsustained paroxysmal ventricular tachycardia Open wound of right lower extremity with complication KRISHAN (obstructive sleep apnea) PAC (premature atrial contraction) PVC's (premature ventricular contractions) Home Medications aspirin 325 mg tablet 325 mg PO DAILY@0800 05/23/16 [History Last Taken Unknown] carvedilol 12.5 mg tablet 12.5 mg PO BID 05/23/16 [History Last Taken 02/24/20] clopidogrel 75 mg tablet 75 mg PO DAILY 05/23/16 [History Last Taken Unknown] albuterol sulfate 2.5 mg/0.5 mL solution for nebulization 2.5 mg inhalation Q6H PRN Shortness Of Breath 05/14/19 [History Last Taken Unknown] amlodipine 5 mg tablet 5 mg PO DAILY 05/14/19 [History Last Taken 02/24/20] gabapentin 300 mg capsule 600 mg PO BID 05/14/19 [History Last Taken Unknown] nitroglycerin 0.4 mg sublingual tablet 0.4 mg sublingual Q5-15M 05/14/19 [History Last Taken Unknown] trazodone 50 mg tablet 50 mg PO QHS 05/14/19 [History Last Taken Unknown] glimepiride 4 mg tablet 4 mg PO DAILY 03/21/22 [History Last Taken Unknown] metformin 500 mg tablet,extended release 24 hr 1,000 mg PO BID 03/21/22 [History Last Taken Unknown] rosuvastatin 40 mg tablet 40 mg PO DAILY 03/21/22 [History Last Taken Unknown] furosemide 40 mg tablet 40 mg PO BID #180 tabs 08/18/23 [Rx Last Taken Unknown] spironolactone 25 mg tablet 25 mg PO DAILY #90 tabs 12/18/23 [Rx Last Taken Unknown] budesonide 160 mcg-glycopyr 9 mcg-formot 4.8 mcg/actuation HFA inhaler (Breztri Aerosphere) 2 inh inhalation BID 01/05/24 [History Last Taken Unknown] fluticasone fur. 100 mcg-umeclid 62.5 mcg-vilant 25 mcg inhalat.powder (Trelegy Ellipta) 1 ea inhalation DAILY 01/05/24 [History Last Taken Unknown] lansoprazole 30 mg capsule,delayed release 30 mg PO DAILY 01/05/24 [History Last Taken Unknown] losartan 100 mg tablet 25 mg PO DAILY 01/05/24 [History Last Taken Unknown] Allergy/AdvReac Type Severity Reaction Status Date / Time atorvastatin [From Lipitor] AdvReac Intermediate Myalgias Verified 01/05/24 08:24 pravastatin [From Pravachol] AdvReac Intermediate Myalgias Verified 01/05/24 08:24 Family History Father , Age 41 of CHF Cardiomyopathy Congestive heart failure Sister , age 38 of heart failure Congestive heart failure Surgical History History of coronary artery stent placement (12/12/10) History of left heart catheterization (03/25/19) Implantable cardioverter-defibrillator (ICD) in situ (02/24/20) Social History Smoking Status: Former smoker how long ago did patient quit smokin years ago alcohol intake: never substance use type: does not use caffeine: Yes Type: coffee Number of servings: 3 ROS ROS ED Review of Systems ROS Unobtainable: other Constitutional Constitutional ED: Reports lethargy; Denies chills, fever(s), sweats or weight loss Eyes Eyes: Denies blurry vision, change in vision or diplopia ENT ENT ED: Denies rhinorrhea or sore throat Cardiovascular Cardiovascular: Denies chest pain, orthopnea or racing heartbeat Respiratory/Chest Respiratory/Chest: Reports cough, dyspnea and dyspnea on exertion; Denies orthopnea or sputum Gastrointestinal Gastrointestinal: Denies abdominal pain, diarrhea, nausea or vomiting Genitourinary Genitourinary ED: Denies dysuria, hematuria or urinary frequency Musculoskeletal Musculoskeletal: Denies arthralgias, back pain, myalgias or neck pain Integumentary Denies abscess, Abrasions or rash Neurologic Neurologic: Denies headache(s) or weakness Psychiatric Psychiatric: Denies anxiety, depression or suicidal thoughts Endocrine Endocrinology: Denies polydipsia, polyphagia or polyuria Hematologic/Lymphatic Hematologic/Lymphatic: Denies easy bleeding, easy bruising or lymphadenopathy Allergic/Immunologic Allergic/Immunologic ED: Denies mouth swelling, tongue swelling or urticaria EXAM Physical Exam Const Vital Signs: 01/05/24 08:21 01/05/24 09:04 01/05/24 08:24 Temperature 96.0 F L 98.1 F Temperature Source Temporal Oral Pulse Rate 90 89 89 Respiratory Rate 20 H 28 H 24 H Respiratory Effort Respiratory Depth Respiratory Pattern Tachypnea Blood Pressure 119/72 112/60 Blood Pressure Mean 87 77 Pulse Ox 72 92 Oxygen Delivery Method Nasal Cannula Nasal Cannula Oxygen Flow Rate (L/min) 2 6 01/05/24 08:39 01/05/24 09:24 01/05/24 09:43 Temperature 99.3 F H Temperature Source Oral Pulse Rate 85 Respiratory Rate 18 Respiratory Effort Short of Breath Labored Accessory Muscle Use Respiratory Depth Shallow Respiratory Pattern Tachypnea Blood Pressure 102/55 L Blood Pressure Mean 70 Pulse Ox 93 Oxygen Delivery Method Nasal Cannula Nasal Cannula Nasal Cannula Oxygen Flow Rate (L/min) 6 6 2 01/05/24 09:44 Temperature 99.1 F Temperature Source Oral Pulse Rate 89 Respiratory Rate 17 Respiratory Effort Respiratory Depth Respiratory Pattern Blood Pressure 113/53 L Blood Pressure Mean 73 Pulse Ox 94 Oxygen Delivery Method Nasal Cannula Oxygen Flow Rate (L/min) 6 Positive well nourished and well developed General Appearance ED: well developed and NAD HEENT Reports TM's clear and moist mucous membranes normocephalic and atraumatic; Negative for trauma or tenderness Tympanic Membrane ED: Yes TM's clear Eyes PERRL and EOMs intact bilaterally General Eye ED: Negative for pale conjunctiva or scleral icterus Neck no lymphadenopathy, supple and no JVD General: Negative for tenderness Chest Wall inspection of chest normal and palpation of chest normal Chest: Negative for tenderness Resp normal respiratory effort and clear to auscultation bilaterally Resp Narrative: Diminished breath sounds bilaterally with some faint expiratory wheezes. Mild conversational dyspnea. No accessory muscle use or retractions. Effort and Inspection: Negative for respiratory distress or pain with movement Auscultation: Negative for rhonchi, wheezes or diminished lung sounds Cardio regular rate, regular rhythm, S1 normal heart sound, S2 normal heart sound and no murmurs Peripheral Pulses: pulses 2+ throughout GI normal to inspection, nondistended, normoactive bowel sounds, soft to palpation, non-tender, non-distended and no masses Back/Spine no CVA tenderness and no thoracic nor lumbar tenderness Extremity normal to inspection General Extremety ED: Negative for edema General Extremity: Negative for edema Neuro oriented x3, CN's II-XII intact bilaterally, no sensory deficits noted and gait normal Sensorium / Orientation: awake, alert, oriented to person, oriented to place and oriented to time Motor Exam: strength 5/5 throughout and strength abnormal Psych mental status grossly normal Skin no rashes or lesions noted and no wounds MDM MDM MDM Narrative Medical decision making narrative: Patient presents with increased dyspnea and hypoxemia on his 4 L of O2 at home. Patient was given a DuoNeb aerosol here placed on a color television console monitor and IV line established. EKG obtained on arrival showed a sinus rhythm with ventricular rate of [address] changes. CBC with differential showed a normal white count of 5.5 with hemoglobin 13 and platelet count of 152. Chemistries unremarkable. Troponin normal at 37 and BNP was normal at 88.1. Chest x-ray read by radiology as increased markings in lower lobes bilaterally which could be atelectasis versus early infiltrate. I did obtain blood cultures and a lactate. Lactate was normal at 1.0. Patient was started on Solu-Medrol 125 mg IV and given Levaquin 750 mg IV. COVID flu and RSV testing returned positive for influenza. I did order Tamiflu p.o. Will discuss case with hospitalist to evaluate patient for admission. Diagnosis will be COPD exacerbation and influenza with hypoxemia and respiratory failure. Lab Data Attestation: I reviewed the patient's lab results. Labs: Laboratory Results - last 24 hr 01/05/24 09:00 WBC 5.5 RBC 4.70 Hgb 13.2 Hct 43.1 MCV 91.7 MCH 28.1 MCHC 30.6 L RDW Std Deviation 43.3 RDW Coeff of Pete 12.9 Plt Count 152 MPV 10.8 Immature Gran % (Auto) 0.500 Neut % (Auto) 78.6 H Lymph % (Auto) 8.7 L [place] % (Auto) 9.5 Eos % (Auto) 2.2 Baso % (Auto) 0.5 Absolute Neuts (auto) 4.3 Absolute Lymphs (auto) 0.48 L Nucleated RBC % 0 Sodium 134 L Potassium 3.8 Chloride 92 L Carbon Dioxide 40.0 H Anion Gap 2 L BUN 14 Creatinine 0.89 Estim Creat Clear Calc 131.60 Est GFR (MDRD) Af Amer 111 Est GFR (MDRD) Non-Af 92 BUN/Creatinine Ratio 15.8 Glucose 144 H Lactic Acid 1.0 Calcium 8.9 Troponin I High Sens 37 B-Natriuretic Peptide 88.1 Radiography Diagnostic Testing: Clinical Impression(s) from Imaging Studies Chest X-Ray 01/05/24 09:07 IMPRESSION: Increased markings at the lung bases worse on the left side with areas of confluence suggestive of atelectasis and/or early infiltrates. Electronically Signed: Jelani Pretty MD at 9:29 EDT , 1 view chest x-ray obtained interpreted by myself as mild hyperinflation with questionable increased markings in lower lobes. Radiology in agreement felt there may be atelectasis in the lower bases versus early infiltrate. EKG Initial EKG: Attestation: I personally reviewed and interpreted this EKG as follows: Comments: Sinus rhythm with ventricular rate of [address] changes Discharge Plan Triage Chief Complaint: Shortness of Breath ED Provider: Damian Almonte Dx/Rx/DC Orders Clinical Impression: Respiratory failure, COPD exacerbation, Influenza Prescriptions: No Action trazodone 50 mg tablet 50 mg PO QHS amlodipine 5 mg tablet 5 mg PO DAILY nitroglycerin 0.4 mg tablet, sublingual 0.4 mg SUBLINGUAL Q5-15M albuterol sulfate concentrate 2.5 mg/0.5 mL solution for nebulization 2.5 mg/0.5 mL solution for nebulization 2.5 mg INHALATION Q6H PRN (Reason: Shortness Of Breath) rosuvastatin 40 mg tablet 40 mg PO DAILY glimepiride 4 mg tablet 4 mg PO DAILY metformin 500 mg tablet extended release 24 hr 1,000 mg PO BID spironolactone 25 mg tablet 25 mg PO DAILY Qty: 90 3RF carvedilol 12.5 MG tablet 12.5 mg PO BID aspirin 325 MG tablet 325 mg PO DAILY@0800 clopidogrel 75 MG tablet 75 mg PO DAILY gabapentin 300 mg capsule 600 mg PO BID Breztri Aerosphere 160-9-4.8 mcg/actuation HFA aerosol inhaler 2 inh INHALATION BID lansoprazole 30 mg capsule,delayed release(DR/EC) 30 mg PO DAILY losartan 100 mg tablet 25 mg PO DAILY furosemide 40 mg tablet 40 mg PO BID Qty: 180 4RF Primary Care Provider: Jae Berumen Referrals: Jae Berumen MD [Primary Care Provider] - Disposition Disposition: Acute Care Hospital [facility]
--- NOTE | 2024-01-05 08:44 | NURSING ---
NO OLD EKGS
[2024-01-05] MEDS: Ipratropium/Albuterol Sulfate 3 ML AMPUL.NEB INHALATION ×4 (09:04→23:24)
--- NOTE | 2024-01-05 09:07 | RAD_ITS ---
STUDY: X-RAY CHEST REASON FOR EXAM: Male, 63 years old. Dyspnea TECHNIQUE: Single AP portable view of the chest. COMPARISON: Comparison is made with prior study February 25, 2020. FINDINGS: EKG electrodes are seen. Increased markings at the lung bases suggestive of bibasilar atelectasis and/or early infiltrates worse on the left side. There is no demonstrated pleural abnormality. A left-sided unipolar pacemaker is seen. Normal mediastinum and marcial. Normal visualized pulmonary arteries. There is atherosclerotic calcification of the aortic arch with tortuosity. There are diffuse degenerative changes of the visualized thoracic spine. Normal visualized ribs, clavicles, and shoulders. There is no demonstrated abnormality of the visualized soft tissue structures of the upper abdomen. RAD/Chest 1 View (Portable) IMPRESSION: Increased markings at the lung bases worse on the left side with areas of confluence suggestive of atelectasis and/or early infiltrates. Electronically Signed: Jelani Pretty MD at 9:29 EDT ,
[2024-01-05 09:35] LABS: Absolute Lymphocyte Count 0.48 X10^3/uL (0.83-4.51); Absolute Neutrophil Count 4.3 X10^3/uL (2.0-7.7); Basophil# 0.03 X10^3/uL; Basophil% 0.5 % (0-1); Eosinophil# 0.12 X10^3/uL; Eosinophils% 2.2 % (0-5); Hematocrit 43.1 % (40-54); Hemoglobin 13.2 g/dL (13.0-16.5); Lymphocyte # 0.48 X10^3/ul (0.83-4.51); Lymphocyte % 8.7 % (19-41); Mean Corp Hgb Conc 30.6 g/dL (32-36); Mean Corpuscular Hgb 28.1 pg (27.0-32.0); Mean Corpuscular Volume 91.7 fL (80-94); Mean Platelet Vol. 10.8 fl (6.2-12.0); Monocyte# 0.52 X10^3/uL; Monocyte% 9.5 % (0-10); NRBC Flagged by Analyzer 0 % (0-5); Neutrophil # 4.32 X10^3/uL (2.7-7.7); Neutrophil % 78.6 % (47-70); POSITIVE DIFFERENTIAL YES; Platelet Count 152 K/mm3 (150-450); RBC Distribution Width CV 12.9 % (11.6-14.6); RBC Distribution Width SD 43.3 fl (35.1-43.9); White Blood Count 5.5 K/mm3 (4.4-11.0)
[2024-01-05 09:50] LABS: BNP,B-Type NATRIURETIC PEPTIDE 88.1 pg/mL (0-100)
[2024-01-05 09:53] LABS: Anion Gap 2 (5-15); BUN 14 mg/dL (7-18); BUN/Creat Ratio 15.8 RATIO (10-20); Calcium,Total 8.9 mg/dL (8.5-10.1); Chloride 92 mmol/L (98-107); Creatinine, Serum 0.89 mg/dL (0.70-1.30); EST Glomerular Filtration Rate 92 mL/min (>60); Est Glom Filt Rate - Afr Amer 111 mL/min (>60); Glucose 144 mg/dL (74-106); Potassium 3.8 mmol/L (3.5-5.1); Sodium Level 134 mmol/L (136-145); Troponin-I HS 37 pg/mL (3.0-78.0)
--- NOTE | 2024-01-05 10:38 | NURSING ---
MED SURG [place] COPD EXAC, FLU A, HYPOXEMIA, RESP FAILURE
--- NOTE | 2024-01-05 11:04 | HP.PCM.HOS_ITS ---
HPI - General General Date of Admission: 01/05/24 Date of Service: 01/05/24 Chief Complaint: Shortness of breath. HPI Narrative BARRETT JORGE, is a 63 M who presents with shortness of breath. He has been short of breath for few days. Pulse noted to be in 70s despite chronic oxygen requirements of 4l/m. He presented to ED and oxygen was increased to 6 l/m. He received levofloxacin, methylpred, BDs. He is feeling better. 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 Atrial tachycardia, paroxysmal CHF (congestive heart failure), NYHA class III COPD (chronic obstructive pulmonary disease) Diabetes mellitus, type II Diminished pulses in lower extremity Essential hypertension HFrEF (heart failure with reduced ejection fraction) Hyperlipidemia Ischemic cardiomyopathy Morbid obesity Neuropathy of both feet Nocturnal oxygen desaturation Nonsustained paroxysmal ventricular tachycardia Open wound of right lower extremity with complication KRISHAN (obstructive sleep apnea) PAC (premature atrial contraction) PVC's (premature ventricular contractions) Home Medications aspirin 325 mg tablet 325 mg PO DAILY@0800 HE[facility] 05/23/16 [History Last Taken 01/05/24] carvedilol 12.5 mg tablet 12.5 mg PO BID BLOOD PRESSUR 05/23/16 [History Last Taken 01/05/24] clopidogrel 75 mg tablet 75 mg PO DAILY CHOLESTEROL 05/23/16 [History Last Taken 01/05/24] amlodipine 5 mg tablet 5 mg PO DAILY BLOOD PRESSURE 05/14/19 [History Last Taken 01/05/24] gabapentin 300 mg capsule 900 mg PO BID nerve pain 05/14/19 [History Last Taken 01/05/24] nitroglycerin 0.4 mg sublingual tablet 0.4 mg sublingual Q5-15M CHEST PAIN 05/14/19 [History Last Taken Unknown] trazodone 50 mg tablet 50 mg PO QHS INSOMNIA 05/14/19 [History Last Taken 01/04/24] glimepiride 4 mg tablet 4 mg PO DAILY DIABETES 03/21/22 [History Last Taken 01/05/24] metformin 500 mg tablet,extended release 24 hr 1,000 mg PO BID DIABETES 03/21/22 [History Last Taken 01/05/24] rosuvastatin 40 mg tablet 40 mg PO DAILY CHOLESTEROL 03/21/22 [History Last Ta ashleigh 01/05/24] furosemide 40 mg tablet 40 mg PO BID FLUID RETENTION #180 tabs 08/18/23 [Rx Last Taken 01/05/24] spironolactone 25 mg tablet 25 mg PO DAILY FLUID RETENTION #90 tabs 12/18/23 [Rx Last Taken 01/05/24] budesonide 160 mcg-glycopyr 9 mcg-formot 4.8 mcg/actuation HFA inhaler (Breztri Aerosphere) 2 inh inhalation BID SHORTNESS OF BREATH 01/05/24 [History Last Taken Unknown] fluticasone fur. 100 mcg-umeclid 62.5 mcg-vilant 25 mcg inhalat.powder (Trelegy Ellipta) 1 ea inhalation DAILY SHORTNESS OF BREATH 01/05/24 [History Last Taken 01/05/24] hydrocortisone 2.5 % topical cream applic topical BID PRN HANDS 01/05/24 [History Last Taken Unknown] ipratropium 0.5 mg-albuterol 3 mg (2.5 mg base)/3 mL nebulization soln 3 ml inhalation 4X/DAY SHORTNESS OF BREATH 01/05/24 [History Last Taken 01/05/24] lansoprazole 30 mg capsule,delayed release 30 mg PO DAILY HEARTBURN 01/05/24 [History Last Taken 01/05/24] losartan 25 mg tablet 25 mg PO DAILY BLOOD PRESSURE 01/05/24 [History Last Taken Unknown] Allergy/AdvReac Type Severity Reaction Status Date / Time atorvastatin [From Lipitor] AdvReac Intermediate Myalgias Verified 01/05/24 08:24 pravastatin [From Pravachol] AdvReac Intermediate Myalgias Verified 01/05/24 08:24 Family History Father , Age 41 of CHF Cardiomyopathy Congestive heart failure Sister , age 38 of heart failure Congestive heart failure Surgical History History of coronary artery stent placement (12/12/10) History of left heart catheterization (03/25/19) Implantable cardioverter-defibrillator (ICD) in situ (02/24/20) Social History Smoking Status: Former smoker how long ago did patient quit smokin years ago alcohol intake: never substance use type: does not use caffeine: Yes Type: coffee Number of servings: 3 ROS ROS Narrative Chronic LE edema, no change. All review of systems were negative except as mentioned above in the history of present illness and the other review of systems. Vital Signs Vital Signs Vital Signs: 01/05/24 08:21 01/05/24 09:04 01/05/24 08:24 Temperature 35.6 C L 36.7 C Temperature Source Temporal Oral Pulse Rate 90 89 89 Respiratory Rate 20 H 28 H 24 H Respiratory Effort Respiratory Depth Respiratory Pattern Tachypnea Blood Pressure 119/72 112/60 Blood Pressure Mean 87 77 Pulse Ox 72 92 Oxygen Delivery Method Nasal Cannula Nasal Cannula Oxygen Flow Rate (L/min) 2 6 01/05/24 08:39 01/05/24 09:24 01/05/24 09:43 Temperature 37.4 C H Temperature Source Oral Pulse Rate 85 Respiratory Rate 18 Respiratory Effort Short of Breath Labored Accessory Muscle Use Respiratory Depth Shallow Respiratory Pattern Tachypnea Blood Pressure 102/55 L Blood Pressure Mean 70 Pulse Ox 93 Oxygen Delivery Method Nasal Cannula Nasal Cannula Nasal Cannula Oxygen Flow Rate (L/min) 6 6 2 01/05/24 09:44 Temperature 37.3 C Temperature Source Oral Pulse Rate 89 Respiratory Rate 17 Respiratory Effort Respiratory Depth Respiratory Pattern Blood Pressure 113/53 L Blood Pressure Mean 73 Pulse Ox 94 Oxygen Delivery Method Nasal Cannula Oxygen Flow Rate (L/min) 6 Weight Weight: 167.9 kg Body Mass Index (BMI) 53.1 Physical Exam Const alert Resp normal respiratory effort and no retractions Resp Narrative: diminished bilaterally. Cardio regular rate, regular rhythm, S1 normal heart sound and S2 normal heart sound GI normal to inspection, nondistended, normoactive bowel sounds, soft to palpation, non-tender and non-distended Extremity Extremity Narrative: lymphedematous changes in LE. Results Lab / Micro Data Attestation: I reviewed the patient's lab results. 01/05/24 09:00 01/05/24 09:00 Labs: Laboratory Results - last 24 hr 01/05/24 09:00: WBC 5.5, RBC 4.70, Hgb 13.2, Hct 43.1, MCV 91.7, MCH 28.1, MCHC 30.6 L, RDW Std Deviation 43.3, RDW Coeff of Pete 12.9, Plt Count 152, MPV 10.8, Immature Gran % (Auto) 0.500, Neut % (Auto) 78.6 H, Lymph % (Auto) 8.7 L, [place]rill % (Auto) 9.5, Eos % (Auto) 2.2, Baso % (Auto) 0.5, Absolute Neuts (auto) 4.3, Absolute Lymphs (auto) 0.48 L, Nucleated RBC % 0, Sodium 134 L, Potassium 3.8, Chloride 92 L, Carbon Dioxide 40.0 H, Anion Gap 2 L, BUN 14, Creatinine 0.89, Estim Creat Clear Calc 131.60, Est GFR (MDRD) Af Amer 111, Est GFR (MDRD) Non-Af 92, BUN/Creatinine Ratio 15.8, Glucose 144 H, Lactic Acid 1.0, Calcium 8.9, Troponin I High Sens 37, B-Natriuretic Peptide 88.1 Micro: Microbiology 01/05/24 08:56 Mucosa - Nose SARS-CoV-2, Influenza & RSV (PCR) - Final Influenzae A Imaging Radiology Impression Chest X-Ray 01/05/24 09:07 IMPRESSION: Increased markings at the lung bases worse on the left side with areas of confluence suggestive of atelectasis and/or early infiltrates. Electronically Signed: Jelani Pretty MD at 9:29 EDT Reading Location ID and State: [address] [place] [address] , Service support , Assessment & Plan Assessment/Plan (1) COPD exacerbation: (2) Influenza: (3) Respiratory failure: PLAN: Plan Acute on chronic respiratory failure * 2/2 influenza and COPD exacerbation * pt was hypoxic in 70s on home oxygen of 4l/m with tachypneia of RR up to 28. Acute COPD exacerbation * likely exacerbated by influenza * BDs, methylpred Acute influenza A * on oseltamivir Chronic conditions: * DM2: SSI * morbid obesity: complicates care and recovery. * HTN: continue amlodipine, carvedilol * CAD: stable. continue ASA, clopidogrel VTE prophylaxis: enoxaparin Code status: addressed w patient--full code. Charges/Coding Visit Charges Inpatient E&M: 70916 Init Hosp L3
[2024-01-05] MEDS: Oseltamivir Phosphate 75 MG Capsule PO ×2 (11:19→20:59)
[2024-01-05] MEDS: levoFLOXacin IV 750 MG/150 ML BAG 100 MG IV (11:19)
[2024-01-05] MEDS: MethylPREDNISolone 125 MG/2 ML Vial IV (11:19)
[2024-01-05 12:57] LABS: Bedside Glucose 87 mg/dL (74-106)
[2024-01-05] MEDS: Albuterol 2.5 MG/3 ML VIAL.NEB. INHALATION (13:17)
[2024-01-05 13:53] LABS: Allen Test Positive; Base Excess 14 mmol/L (-2 to +2); Blood Gas Specimen Type ART; Mode Not entered; O2 Delivery Device HFNC; PO2 58 mmHG (75-100); SITE R Radial; SO2 86 % (95-99); Time Given 13:50:40; Total Carbon Dioxide 42 mmol/L; pCO2 78.2 mmHg (35-45); pH 7.32 (7.35-7.45)
[2024-01-05] MEDS: 0.9% Saline Lock 10 ML Syringe IV (14:18)
[2024-01-05] MEDS: Acetaminophen 325 MG Tablet 650 MG PO (17:07)
[2024-01-05 17:53] LABS: Bedside Glucose 140 mg/dL (74-106)
[2024-01-05] MEDS: metFORMIN (XR) 500 MG Tablet 1000 MG PO (18:19)
[2024-01-05] MEDS: Carvedilol 12.5 MG Tablet PO (20:58)
[2024-01-05] MEDS: Gabapentin 300 MG Capsule 600 MG PO (20:59)
[2024-01-05] MEDS: traZODone 50 MG Tablet PO (20:59)
[2024-01-06] VITALS (14 sets, daily range): BP systolic 104–118; BP diastolic 63–70; PULSE 69–95; RESP 12–22; TEMP 36.6–37.6; O2SAT 92–96
[2024-01-06] MEDS: Furosemide 40 MG Tablet PO ×2 (05:05→18:18)
[2024-01-06 05:36] LABS: Bedside Glucose 210 mg/dL (74-106)
[2024-01-06] MEDS: Acetaminophen 325 MG Tablet 650 MG PO (05:55)
[2024-01-06] MEDS: Ipratropium/Albuterol Sulfate 3 ML AMPUL.NEB INHALATION ×5 (07:15→23:41)
--- NOTE | 2024-01-06 07:21 | PN.HOSP_ITS ---
Reason for Visit Reason for Visit: Diagnoses Influenza due to unidentified influenza virus with other respiratory manifestat ions (01/05/24) Chronic obstructive pulmonary disease with (acute) exacerbation (01/05/24) Respiratory failure, unspecified, unspecified whether with hypoxia or hypercapnia (01/05/24) Subjective Subjective Breathing better. On increased oxygen. Says he was on BiPAP overnight. Objective Data Objective Data Vital Signs: Vital Signs Temp Pulse Resp BP Pulse Ox O2 Del Method O2 Flow Rate 37.6 C H 95 18 104/70 95 High Flow 8 01/06/24 05:22 01/06/24 05:22 01/06/24 05:22 01/06/24 05:22 01/06/24 05:46 01/06/24 05:46 01/06/24 05:46 FiO2 40 01/06/24 03:25 Oxygen Flow Rate (L/min) 8 Oxygen Delivery Method High Flow Weight: 167.9 kg Body Mass Index (BMI) 53.1 Intake & Output: Intake and Output for Last 24 Hours 01/04/24 01/05/24 01/06/24 23:59 23:59 23:59 Intake Total 700 / 700 Balance 700 / 700 Lab / Micro Data 01/05/24 09:00 01/06/24 06:45 Labs: Laboratory Results - last 24 hr 01/05/24 09:00: WBC 5.5, RBC 4.70, Hgb 13.2, Hct 43.1, MCV 91.7, MCH 28.1, MCHC 30.6 L, RDW Std Deviation 43.3, RDW Coeff of Pete 12.9, Plt Count 152, MPV 10.8, Immature Gran % (Auto) 0.500, Neut % (Auto) 78.6 H, Lymph % (Auto) 8.7 L, [place] % (Auto) 9.5, Eos % (Auto) 2.2, Baso % (Auto) 0.5, Absolute Neuts (auto) 4.3, Absolute Lymphs (auto) 0.48 L, Nucleated RBC % 0, Sodium 134 L, Potassium 3.8, Chloride 92 L, Carbon Dioxide 40.0 H, Anion Gap 2 L, BUN 14, Creatinine 0.89, Estim Creat Clear Calc 131.60, Est GFR (MDRD) Af Amer 111, Est GFR (MDRD) Non-Af 92, BUN/Creatinine Ratio 15.8, Glucose 144 H, Lactic Acid 1.0, Calcium 8.9, Troponin I High Sens 37, B-Natriuretic Peptide 88.1 01/05/24 12:10: POC Glucose 87 01/05/24 17:05: POC Glucose 140 H 01/06/24 05:14: POC Glucose 210 H Micro: Microbiology 01/05/24 08:56 Mucosa - Nose SARS-CoV-2, Influenza & RSV (PCR) - Final Influenzae A ABG Data ABG results: ABG 01/05/24 13:48 Specimen Type ART Sample Site R Radial pH 7.32 L Bicarbonate Actual 40.0 H Total CO2 42 Base Excess 14 H O2 Saturation 86 L O2 % 9.0 ABG pCO2 78.2 H* ABG pO2 58 L Jeff Test Positive O2 Delivery Device HFNC Vent Mode Not entered Crit Call To/Read Back Yes Blood Gas Notified Whom brii Blood Gas Notified Time 13:50:40 Radiography Diagnostic Testing: Radiology Impression Chest X-Ray 01/05/24 09:07 IMPRESSION: Increased markings at the lung bases worse on the left side with areas of confluence suggestive of atelectasis and/or early infiltrates. Electronically Signed: Jelani Pretty MD at 9:29 EDT , Physical Exam Const alert and no apparent distress Constitutional Narrative: up at side of bed. no respiratory distress. no conversational dyspnea. Resp normal respiratory effort, no retractions, no use of accessory muscles and clear to auscultation bilaterally Cardio regular rate, regular rhythm, S1 normal heart sound and S2 normal heart sound GI normal to inspection, nondistended, normoactive bowel sounds, soft to palpation, non-tender and non-distended Extremity Extremity Narrative: edema in LE, not taut nor pitting. Assessment & Plan Assessment/Plan (1) COPD exacerbation: (2) Influenza: (3) Respiratory failure: PLAN: Plan Acute on chronic hypoxic and hypercapnic respiratory failure * 2/2 influenza and COPD exacerbation * pt was hypoxic in 70s on home oxygen of 4l/m with tachypnea of RR up to 28. * pt endorses using BiPAP at home off and on. * Did transiently require high flow oxygen, but has been weaned down. Acute COPD exacerbation * likely exacerbated by influenza * BDs, methylpred Acute influenza A * on oseltamivir * reports having influenza vaccine this year. Chronic conditions: * DM2: SSI * morbid obesity: complicates care and recovery. * HTN: continue amlodipine, carvedilol * CAD: stable. continue ASA, clopidogrel VTE prophylaxis: enoxaparin Code status: addressed w patient--full code. Disposition: TBD. Charges/Coding Visit Charges Inpatient E&M: 59759 Subs Hosp L2
[2024-01-06 08:44] LABS: Anion Gap 6 (5-15); BUN 16 mg/dL (7-18); BUN/Creat Ratio 18.7 RATIO (10-20); Chloride 90 mmol/L (98-107); Creatinine, Serum 0.86 mg/dL (0.70-1.30); EST Glomerular Filtration Rate 96 mL/min (>60); Est Glom Filt Rate - Afr Amer 116 mL/min (>60); Estimated Creatinine Clearance 136.19 ml/min; Glucose 209 mg/dL (74-106); Potassium 4.1 mmol/L (3.5-5.1); Sodium Level 132 mmol/L (136-145)
[2024-01-06] MEDS: Aspirin 325 MG Tablet PO (08:44)
[2024-01-06] MEDS: Glimepiride 4 MG Tablet PO (08:44)
[2024-01-06] MEDS: metFORMIN (XR) 500 MG Tablet 1000 MG PO ×2 (08:44→18:18)
[2024-01-06] MEDS: Gabapentin 300 MG Capsule 600 MG PO ×2 (08:44→20:54)
[2024-01-06] MEDS: Losartan Potassium 25 MG Tablet PO (08:45)
[2024-01-06] MEDS: amLODIPine 5 MG Tablet PO (08:45)
[2024-01-06] MEDS: Clopidogrel Bisulfate 75 MG Tablet PO (08:45)
[2024-01-06] MEDS: Carvedilol 12.5 MG Tablet PO ×2 (08:45→20:54)
[2024-01-06] MEDS: Rosuvastatin 20 MG Tablet 40 MG PO (08:46)
[2024-01-06] MEDS: Oseltamivir Phosphate 75 MG Capsule PO ×2 (08:46→20:54)
[2024-01-06] MEDS: Pantoprazole Sodium 40 MG Tablet PO (08:46)
[2024-01-06] MEDS: Spironolactone 25 MG Tablet PO (08:47)
--- NOTE | 2024-01-06 10:22 | CASEMGMT ---
CK GANDARA Assessment Face to Face with patient for initial transition planning/care coordination assessment. CK GANDARA introduced self and role at [facility], pt voices understanding. Pt is A&Ox4 and is resting comfortably in bed and is calm. Pt is currently on 8L of HF oxygen. Care providers, pharmacy, and demographics verified. Admitting dx: COPD Ex., Influenza LACE Strata: 2 PCP: [facility] Specialists: Pt states that he sees lots of specialist but I don't know their names. Pt recalls that he sees Dr. Arthur (Pulmonary) only at this time. [facility]: [employer] Prescription Benefit: Yes LNOK: Angelina Armando (W), Brianda Mason (KEVIN) Living Arrangements: Pt lives with his in a 2 story home with a BM with HR throughout and a flat entrance. Pt denies issues at home. ADLs/IADLs: Ind Transportation: Self, DME: [employer] but does not use. BP Cuff. Pt states that he wears 4L of O2 continuously supplied through [employer]. Pt states that he has been unable to get used to wearing his CPAP at night. Chrissy from [employer] confirms the pt current order states 3L at rest, 4 with exertion, and 4 L bleed through CPAP at night. Pt states that he has portable tanks and a concentrator. Pt denies having a P Ox at home and states that he is going to look into buying one after DC. HHC/SNF: Denies history or needs. Pt?s goal: Home Plan: 6 Click is 22. PT/OT eval is pending. Pt states that he is ind at home and states that he feels safe DC home with no additional needs. CM to follow pt oxygen needs for potential updated Rx. Kiya Gonzalez RN, CM
[2024-01-06 12:38] LABS: Bedside Glucose 301 mg/dL (74-106)
[2024-01-06] MEDS: 0.9% Saline Lock 10 ML Syringe IV (15:11)
[2024-01-06 18:59] LABS: Bedside Glucose 138 mg/dL (74-106)
[2024-01-06] MEDS: traZODone 50 MG Tablet PO (20:54)
[2024-01-07] VITALS (12 sets, daily range): BP systolic 107–118; BP diastolic 60–65; PULSE 69–82; RESP 12–20; TEMP 36.6; O2SAT 89–98
[2024-01-07] MEDS: Ipratropium/Albuterol Sulfate 3 ML AMPUL.NEB INHALATION ×2 (03:55→07:17)
[2024-01-07] MEDS: Acetaminophen 325 MG Tablet 650 MG PO (04:45)
[2024-01-07] MEDS: Furosemide 40 MG Tablet PO (04:45)
[2024-01-07 06:56] LABS: Bedside Glucose 150 mg/dL (74-106)
--- NOTE | 2024-01-07 07:23 | PN.HOSP_ITS ---
Reason for Visit Reason for Visit: Diagnoses Influenza due to unidentified influenza virus with other respiratory manifestat ions (01/05/24) Chronic obstructive pulmonary disease with (acute) exacerbation (01/05/24) Respiratory failure, unspecified, unspecified whether with hypoxia or hypercapnia (01/05/24) Subjective Subjective Feels well ready to go home. Oxygen able to be weaned down to his baseline. Objective Data Objective Data Vital Signs: Vital Signs Temp Pulse Resp BP Pulse Ox O2 Del Method O2 Flow Rate 36.6 C 78 18 118/60 92 High Flow 4 01/07/24 04:30 01/07/24 04:30 01/07/24 04:30 01/07/24 04:30 01/07/24 06:44 01/07/24 06:43 01/07/24 06:44 FiO2 40 01/07/24 03:52 Oxygen Flow Rate (L/min) 4 Oxygen Delivery Method High Flow Weight: 167.9 kg Body Mass Index (BMI) 53.1 Intake & Output: Intake and Output for Last 24 Hours 01/05/24 01/06/24 01/07/24 23:59 23:59 23:59 Intake Total 700 / 700 860 / 860 Balance 700 / 700 860 / 860 Lab / Micro Data 01/05/24 09:00 01/06/24 06:45 Labs: Laboratory Results - last 24 hr 01/06/24 06:45: Sodium 132 L, Potassium 4.1, Chloride 90 L, Carbon Dioxide 36.0 H, Anion Gap 6, BUN 16, Creatinine 0.86, Estim Creat Clear Calc 136.19, Est GFR (MDRD) Af Amer 116, Est GFR (MDRD) Non-Af 96, BUN/Creatinine Ratio 18.7, Glucose 209 H, Calcium 9.0 01/06/24 12:21: POC Glucose 301 H 01/06/24 18:13: POC Glucose 138 H 01/07/24 06:35: POC Glucose 150 H Micro: Microbiology 01/05/24 09:00 Blood Culture (Wb) - Anticubital Right Bacteria Detection (PCR) - Final Coag Negative Staph 01/05/24 09:00 Blood Culture (Wb) - Anticubital Right Blood Culture - Preliminary 01/05/24 08:56 Mucosa - Nose SARS-CoV-2, Influenza & RSV (PCR) - Final Influenzae A Physical Exam Const alert and no apparent distress HEENT head/scalp atraumatic and moist oral mucous membranes Resp normal respiratory effort and no retractions Resp Narrative: improved air movement. Assessment & Plan Assessment/Plan (1) COPD exacerbation: (2) Influenza: (3) Respiratory failure: PLAN: Plan Acute on chronic hypoxic and hypercapnic respiratory failure * improved * 2/2 influenza and COPD exacerbation * pt was hypoxic in 70s on home oxygen of 4l/m with tachypnea of RR up to 28. * pt endorses using BiPAP at home off and on. * Did transiently require high flow oxygen, but has been weaned down. Acute COPD exacerbation * likely exacerbated by influenza * BDs, methylpred. pred taper on discharge. Acute influenza A * on oseltamivir * reports having influenza vaccine this year. Chronic conditions: * DM2: SSI * morbid obesity: complicates care and recovery. * HTN: continue amlodipine, carvedilol * CAD: stable. continue ASA, clopidogrel VTE prophylaxis: enoxaparin Code status: addressed w patient--full code. Disposition: TBD.
[2024-01-07] MEDS: Gabapentin 300 MG Capsule 600 MG PO (08:53)
[2024-01-07] MEDS: Oseltamivir Phosphate 75 MG Capsule PO (08:53)
[2024-01-07] MEDS: Clopidogrel Bisulfate 75 MG Tablet PO (08:54)
[2024-01-07] MEDS: Pantoprazole Sodium 40 MG Tablet PO (08:54)
[2024-01-07] MEDS: amLODIPine 5 MG Tablet PO (08:54)
[2024-01-07] MEDS: Losartan Potassium 25 MG Tablet PO (08:54)
[2024-01-07] MEDS: Glimepiride 4 MG Tablet PO (08:54)
[2024-01-07] MEDS: Spironolactone 25 MG Tablet PO (08:54)
[2024-01-07] MEDS: metFORMIN (XR) 500 MG Tablet 1000 MG PO (08:55)
[2024-01-07] MEDS: Carvedilol 12.5 MG Tablet PO (08:55)
[2024-01-07] MEDS: Rosuvastatin 20 MG Tablet 40 MG PO (08:55)
[2024-01-07] MEDS: Aspirin 325 MG Tablet PO (08:55)
--- NOTE | 2024-01-07 09:05 | DS.PCM_ITS ---
Providers Date of Admission: 01/05/24 Primary Care Physician: Dr. Jae Berumen MD Reason For Visit: COPD EX. INFLUENZA Diagnosis Discharge Diagnosis (1) COPD exacerbation: Status: Chronic Code(s): J44.1 - Chronic obstructive pulmonary disease with (acute) exacerbation (2) Influenza: Status: Acute Code(s): J11.1 - Influenza due to unidentified influenza virus with other respiratory manifestations (3) Respiratory failure: Status: Acute Code(s): J96.90 - Respiratory failure, unspecified, unspecified whether with hypoxia or hypercapnia Plan Acute on chronic hypoxic and hypercapnic respiratory failure * improved * 2/2 influenza and COPD exacerbation * pt was hypoxic in 70s on home oxygen of 4l/m with tachypnea of RR up to 28. * pt endorses using BiPAP at home off and on. * Did transiently require high flow oxygen, but has been weaned down. Acute COPD exacerbation * likely exacerbated by influenza * BDs, methylpred. pred taper on discharge. Acute influenza A * on oseltamivir * reports having influenza vaccine this year. Chronic conditions: * DM2: SSI * morbid obesity: complicates care and recovery. * HTN: continue amlodipine, carvedilol * CAD: stable. continue ASA, clopidogrel VTE prophylaxis: enoxaparin Code status: addressed w patient--full code. Disposition: TBD. Medications at Discharge Home Medications aspirin 325 mg tablet 325 mg PO DAILY@0800 HEART HEALTH 05/23/16 carvedilol 12.5 mg tablet 12.5 mg PO BID BLOOD PRESSUR 05/23/16 clopidogrel 75 mg tablet 75 mg PO DAILY CHOLESTEROL 05/23/16 amlodipine 5 mg tablet 5 mg PO DAILY BLOOD PRESSURE 05/14/19 gabapentin 300 mg capsule 900 mg PO BID nerve pain 05/14/19 nitroglycerin 0.4 mg sublingual tablet 0.4 mg sublingual Q5-15M CHEST PAIN 05/14/19 trazodone 50 mg tablet 50 mg PO QHS INSOMNIA 05/14/19 glimepiride 4 mg tablet 4 mg PO DAILY DIABETES 03/21/22 metformin 500 mg tablet,extended release 24 hr 1,000 mg PO BID DIABETES 03/21/22 rosuvastatin 40 mg tablet 40 mg PO DAILY CHOLESTEROL 03/21/22 furosemide 40 mg tablet 40 mg PO BID FLUID RETENTION #180 tabs 08/18/23 spironolactone 25 mg tablet 25 mg PO DAILY FLUID RETENTION #90 tabs 12/18/23 budesonide 160 mcg-glycopyr 9 mcg-formot 4.8 mcg/actuation HFA inhaler (Breztri Aerosphere) 2 inh inhalation BID SHORTNESS OF BREATH 01/05/24 fluticasone fur. 100 mcg-umeclid 62.5 mcg-vilant 25 mcg inhalat.powder (Trelegy Ellipta) 1 ea inhalation DAILY SHORTNESS OF BREATH 01/05/24 hydrocortisone 2.5 % topical cream applic topical BID PRN HANDS 01/05/24 ipratropium 0.5 mg-albuterol 3 mg (2.5 mg base)/3 mL nebulization soln 3 ml inhalation 4X/DAY SHORTNESS OF BREATH 01/05/24 lansoprazole 30 mg capsule,delayed release 30 mg PO DAILY HEARTBURN 01/05/24 losartan 25 mg tablet 25 mg PO DAILY BLOOD PRESSURE 01/05/24 oseltamivir 75 mg capsule 75 mg PO BID #5 caps 01/07/24 prednisone 10 mg tablet 10 mg PO DAILY #30 tabs 01/07/24 Hospital Course Operations None Procedures None Summary of Care Provided Minutes Spent on Discharge: 32 Hospital Course: Patient presents with shortness of breath for the preceding few days before he came in here. Patient was found to be in COPD exacerbation exacerbated by influenza A. Patient's course complicated by increased oxygen requirements while he was here. Patient was put on BiPAP which he initially rejected as he was not able to tolerate but was able to tolerate it better later on in the hospitalization. Patient does have a BiPAP at home which he uses on an inconsistent basis. Patient was treated with bronchodilators, Solu-Medrol and oseltamivir. He had great improvement on the . Patient was ambulated in the unit was 89% on 4 L with ambulation and then 92% on 4 L with rest. That is his baseline oxygen. Patient will be discharged in stable condition. Oxygen testing reviewed and patient is ambulatory in home and in the community and requires home oxygen with portability. Weight / BMI Weight Weight: 167.9 kg Body Mass Index (BMI) 53.1 ABG / Lab / Microbiology Data 01/05/24 09:00 01/06/24 06:45 Laboratory: Laboratory Results - last 24 hr 01/06/24 12:21: POC Glucose 301 H 01/06/24 18:13: POC Glucose 138 H 01/07/24 06:35: POC Glucose 150 H Microbiology: Microbiology 01/05/24 09:00 Blood Culture (Wb) - Anticubital Right Bacteria Detection (PCR) - Final Coag Negative Staph 01/05/24 09:00 Blood Culture (Wb) - Anticubital Right Blood Culture - Preliminary Coag Negative Staph 01/05/24 08:56 Mucosa - Nose SARS-CoV-2, Influenza & RSV (PCR) - Final Influenzae A D/C Instructions Discharge Diet: Low fat / Low cholesterol Meaningful Use Info Meaningful Use Diagnoses (Choose all that apply): None applicable Discharge Plan Admission Admit Date/Time: 01/05/24 10:35 Primary Reason for Your Visit: COPD exacerbation. Attending Provider: Berto Greer Primary Care Provider: Jae Berumen Instructions Additional Instructions / Restrictions: You had a COPD exacerbation due to influenza. You have improved significantly over the past 2 days. Continue with your home medications and also you will be on Tamiflu as well as prednisone taper. Please follow-up with pulmonology in the coming months. Additionally, use your BiPAP nightly and with naps. Discharge Orders/Prescriptions Prescriptions: New oseltamivir 75 mg Capsule 75 mg PO BID Qty: 5 0RF prednisone 10 mg tablet 10 mg PO DAILY Qty: 30 0RF Rx Instructions: 4 tabs daily for 3 days, then 3 tabs daily for 3 days, then 2 tabs daily for 3 days, then 1 tab daily for 3 days Continued trazodone 50 mg tablet 50 mg PO QHS amlodipine 5 mg tablet 5 mg PO DAILY nitroglycerin 0.4 mg tablet, sublingual 0.4 mg SUBLINGUAL Q5-15M rosuvastatin 40 mg tablet 40 mg PO DAILY glimepiride 4 mg tablet 4 mg PO DAILY metformin 500 mg tablet extended release 24 hr 1,000 mg PO BID spironolactone 25 mg tablet 25 mg PO DAILY Qty: 90 3RF carvedilol 12.5 MG tablet 12.5 mg PO BID aspirin 325 MG tablet 325 mg PO DAILY@0800 clopidogrel 75 MG tablet 75 mg PO DAILY gabapentin 300 mg capsule 900 mg PO BID Breztri Aerosphere 160-9-4.8 mcg/actuation HFA aerosol inhaler 2 inh INHALATION BID Patient Comments: pt has 7 more treatments of the Trelegy, and then will switch to Breztri. lansoprazole 30 mg capsule,delayed release(DR/EC) 30 mg PO DAILY Trelegy Ellipta 100-62.5-25 mcg blister with device 1 ea INHALATION DAILY Patient Comments: pt has 7 more treatments of the Trelegy, and then will switch to Breztri. losartan 25 mg tablet 25 mg PO DAILY ipratropium-albuterol 0.5 mg-3 mg(2.5 mg base)/3 mL solution for nebulization 3 ml inhalation 4X/DAY hydrocortisone 2.5 % cream topical BID PRN (Reason: HANDS) furosemide 40 mg tablet 40 mg PO BID Qty: 180 4RF Referrals / Follow Up: [facility] [Provider Group] - Within 3 Months Jae Berumen MD [Primary Care Provider] - Within 2 Weeks Disposition Disposition (needs filled in before D/C Order can be placed): Home, Self Care Charges/Coding Visit Charges Inpatient E&M: 08289 Disch Hosp >30min
--- NOTE | 2024-01-07 09:41 | CASEMGMT ---
Pt does not need change in oxygen rx. Pt to dc today.
--- NOTE | 2024-01-07 10:16 | PHA.DC.MC.R ---
Pharmacy [facility] has performed discharge medication reconciliation and counseling for this patient. 1. OSELTAMIVIR 75MG PO BID X 5 DOSES 2. PREDNISONE 40MG PO DAILY X 3 DAYS, 30MG X 3 DAYS, 20MG X 3 DAYS, 10MG X 3 DAYS The patient's discharge medication list was reviewed for discrepancies and discrepancies were resolved. The patient was counseled on the following discharge medications and changes in medications for homegoing were reviewed. The Reason for Use, instructions for use, and potential side effects were reviewed for all new medications. The patient's questions regarding all of their medications were answered. The patient was able to verbally demonstrate an understanding of their discharge medications. Medications at Discharge Home Medications aspirin 325 mg tablet 325 mg PO DAILY@0800 HEART HEALTH 05/23/16 carvedilol 12.5 mg tablet 12.5 mg PO BID BLOOD PRESSUR 05/23/16 clopidogrel 75 mg tablet 75 mg PO DAILY CHOLESTEROL 05/23/16 amlodipine 5 mg tablet 5 mg PO DAILY BLOOD PRESSURE 05/14/19 gabapentin 300 mg capsule 900 mg PO BID nerve pain 05/14/19 nitroglycerin 0.4 mg sublingual tablet 0.4 mg sublingual Q5-15M CHEST PAIN 05/14/19 trazodone 50 mg tablet 50 mg PO QHS INSOMNIA 05/14/19 glimepiride 4 mg tablet 4 mg PO DAILY DIABETES 03/21/22 metformin 500 mg tablet,extended release 24 hr 1,000 mg PO BID DIABETES 03/21/22 rosuvastatin 40 mg tablet 40 mg PO DAILY CHOLESTEROL 03/21/22 furosemide 40 mg tablet 40 mg PO BID FLUID RETENTION #180 tabs 08/18/23 spironolactone 25 mg tablet 25 mg PO DAILY FLUID RETENTION #90 tabs 12/18/23 budesonide 160 mcg-glycopyr 9 mcg-formot 4.8 mcg/actuation HFA inhaler (Breztri Aerosphere) 2 inh inhalation BID SHORTNESS OF BREATH 01/05/24 fluticasone fur. 100 mcg-umeclid 62.5 mcg-vilant 25 mcg inhalat.powder (Trelegy Ellipta) 1 ea inhalation DAILY SHORTNESS OF BREATH 01/05/24 hydrocortisone 2.5 % topical cream applic topical BID PRN HANDS 01/05/24 ipratropium 0.5 mg-albuterol 3 mg (2.5 mg base)/3 mL nebulization soln 3 ml inhalation 4X/DAY SHORTNESS OF BREATH 01/05/24 lansoprazole 30 mg capsule,delayed release 30 mg PO DAILY HEARTBURN 01/05/24 losartan 25 mg tablet 25 mg PO DAILY BLOOD PRESSURE 01/05/24 oseltamivir 75 mg capsule 75 mg PO BID #5 caps 01/07/24 prednisone 10 mg tablet 10 mg PO DAILY #30 tabs 01/07/24
== END 2024-01-07 11:56 | disposition home or self-care (01) | DRG 189 ==
LOC: ED 10:33 → MS3 10:46
PROVIDERS: Emergency Provider Emergency Medicine; PCP Family Medicine
DX: J96.21 Acute and chronic respiratory failure with hypoxia (principal); I50.20 Unspecified systolic (congestive) heart failure; J44.1 Chronic obstructive pulmonary disease with (acute) exacerbation; Z68.43 Body mass index [BMI] 50.0-59.9, adult; I11.0 Hypertensive heart disease with heart failure; E11.40 Type 2 diabetes mellitus with diabetic neuropathy, unspecified; J96.22 Acute and chronic respiratory failure with hypercapnia; E66.01 Morbid (severe) obesity due to excess calories; I25.10 Atherosclerotic heart disease of native coronary artery without angina pectoris; E78.5 Hyperlipidemia, unspecified; J10.1 Influenza due to other identified influenza virus with other respiratory manifestations; I25.5 Ischemic cardiomyopathy; G47.33 Obstructive sleep apnea (adult) (pediatric); Z79.82 Long term (current) use of aspirin; Z79.899 Other long term (current) drug therapy; Z79.84 Long term (current) use of oral hypoglycemic drugs; Z79.51 Long term (current) use of inhaled steroids; Z79.02 Long term (current) use of antithrombotics/antiplatelets; Z87.891 Personal history of nicotine dependence; Z95.5 Presence of coronary angioplasty implant and graft; Z95.810 Presence of automatic (implantable) cardiac defibrillator
CPT/HCPCS: 36415; 36600; 71045; 80048; 82803; 82962; 83605; 83880; 84484; 85025; 87040; 87149; 87186; 87631; 93005; 94002; 94003; 94640; 94667; 94668; 94762; 99284; A4216

== ENCOUNTER → 2025-03-08 | Outpatient (CLI) | payer MEDICARE, SELFPAY ==
--- NOTE | 2025-03-08 08:47 | ECHOCS_ITS ---
Reason For Study Reason For Study: Dilated Cardiomyopathy Procedure This was a 2D Doppler, Color Flow transthoracic echocardiogram. The study was technically difficult. Contrast injection was performed. Exam performed in department. Left Ventricle Normal LV size. The left ventricular ejection fraction is 40 %. No regional wall motion abnormalities noted. Right Ventricle Normal RV size. ICD or pacer leads identified within the right ventricle. Normal systolic function. Atria Normal left atrium. Normal right atrium. Mitral Valve Normal mitral valve. Tricuspid Valve Normal tricuspid valve. Mild (1+) tricuspid valve insufficiency. Pulmonary artery systolic pressure is 40 mmHg. Aortic Valve Trisinus/trileaflet aortic valve. Pulmonic Valve The pulmonic valve is not well visualized. Great Vessels Normal aortic root. The pulmonary artery is normal size. Inferior vena cava collapse with respiration. Pericardium/Pleural No pericardial effusion. Medication 22 gauge I.V. with prn adaptor inserted into right arm. Diluted definity 1.5ml given slow IV push to enhance endocardial definition. MMode/2D Measurements & Calculations LVIDd: 5.9 cm IVSd: 1.3 cm Ao root diam: 3.8 cm LVIDs: 4.4 cm LVPWd: 0.91 cm FS: 25.3 % LAV(MOD-bp): 75.1 ml LVAd ap4: 49.4 cm2 SV(MOD-sp4): 72.1 ml LAV(MOD-bp) Indexed: 27.6 ml/m2 LVLd ap4: 10.6 cm SI(MOD-sp4): 26.5 ml/m2 LAV(MOD-sp2): 66.0 ml EDV(MOD-sp4): 186.4 ml LAV(MOD-sp4): 73.7 ml EDV(sp4-el): 195.9 ml LVAs ap4: 37.1 cm2 LVLs ap4: 9.8 cm ESV(MOD-sp4): 114.3 ml ESV(sp4-el): 119.9 ml EF(MOD-sp4): 38.7 % EF(sp4-el): 38.8 % SV(sp4-el): 76.0 ml LA A4 area: 25.1 cm2 LA dimension(2D): 4.2 cm RA A4 area: 31.9 cm2 TAPSE: 2.3 cm Time Measurements MV dec time: 0.24 sec Doppler Measurements & Calculations MV E max solitario: 82.0 cm/sec Lat Peak E' Solitario: 7.4 cm/sec Med Peak E' Solitario: 8.1 cm/sec MV A max solitario: 95.8 cm/sec E/E' lat: 11.0 E/E' med: 10.2 MV E/A: 0.86 MV V2 max: 107.8 cm/sec MV P1/2t max solitario: 88.0 cm/sec Ao V2 max: 165.4 cm/sec MV max P.7 mmHg MV P1/2t: 96.0 msec Ao max P.9 mmHg MV V2 mean: 58.8 cm/sec MV dec slope: 268.4 cm/sec2 Ao V2 mean: 120.8 cm/sec MV mean P.6 mmHg MVA(P1/2t): 2.3 cm2 Ao mean P.6 mmHg MV V2 VTI: 41.5 cm Ao V2 VTI: 36.6 cm LV V1 max: 85.4 cm/sec TR max solitario: 298.2 cm/sec LV V1 max P.9 mmHg TR max P.6 mmHg ECHO/Echo Complete W/ Contrast Interpretation Summary Normal LV size. The left ventricular ejection fraction is 40 %. Structurally normal valves. Contrast injection was performed. Ordering Physician: Krishan Bradley Referring Physician: Jae Berumen Performed By: Rafael Alan RCS
== END | disposition home or self-care (01) ==
LOC: CVS 08:46
PROVIDERS: PCP Family Medicine; Referring Provider Internal Medicine Cardiovascular Disease; Visit Provider Internal Medicine Cardiovascular Disease
DX: I25.5 Ischemic cardiomyopathy (principal)
CPT/HCPCS: 93306; Q9957; A4216; C8929